=== PATIENT | female | born 1955 | race Caucasian/White ===

== ENCOUNTER 2021-08-04 09:01 | Outpatient (CLI) | payer MEDICARE, SELFPAY ==
[2021-08-04 09:25] LABS: Hematocrit 32.1 % (37.0-47.0); Hemoglobin 10.3 g/dL (12.0-15.0); Mean Corpuscular HGB Conc 32.1 g/dl (32-36); Mean Corpuscular Hemoglobin 26.2 pg (26-34); Mean Corpuscular Volume 81.7 fl (80-100); Mean Platelet Volume 8.6 fl (7.4-10.4); Platelet Count Result 260 k/mm3 (150-375); Red Blood Count 3.93 M/mm3 (4.2-5.4); Red Cell Distribution Width 15.2 % (11.5-14.5); White Blood Count 24.4 K/mm3 (4.5-10.0)
[2021-08-04 10:16] LABS: Atypical Lymphocytes Present; Band Neutrophils Percent 2 % (0-6); Eosinophils Absolute Manual 0.48 K/mm3 (0.02-0.5); Eosinophils Percent Manual 2 % (0-4); Hypochromasia 1+ (NORMAL); Lymphocytes Absolute Manual 0.48 K/mm3 (1.1-4.5); Neutrophils Absolute Manual 23.42 K/mm3 (1.7-7.2); Neutrophils Percent Manual 94 % (46-73); Platelet Estimate Adequate (Adequate); Total Cells Counted 100
[2021-08-04 10:17] LABS: Anisocytosis 1+ (NORMAL)
== END 2021-08-04 09:02 | disposition home or self-care (01) ==
PROVIDERS: PCP Internal Medicine
DX: C83.38 Diffuse large B-cell lymphoma, lymph nodes of multiple sites (principal); D61.810 Antineoplastic chemotherapy induced pancytopenia
CPT/HCPCS: 36415; 85025

== ENCOUNTER 2021-08-11 09:01 | Outpatient (CLI) | payer MEDICARE, SELFPAY ==
[2021-08-11 09:19] LABS: Hematocrit 31.5 % (37.0-47.0); Hemoglobin 10.2 g/dL (12.0-15.0); Mean Corpuscular HGB Conc 32.4 g/dl (32-36); Mean Corpuscular Volume 83.3 fl (80-100); Platelet Count Result 160 k/mm3 (150-375); Red Blood Count 3.78 M/mm3 (4.2-5.4); Red Cell Distribution Width 17.2 % (11.5-14.5); White Blood Count 46.1 K/mm3 (4.5-10.0)
[2021-08-11 09:38] LABS: Alanine Aminotransferase 16 U/L (4-35); Albumin Level 3.2 g/dL (3.5-5.1); Alkaline Phosphatase 136 U/L (38-126); Anion Gap 5 mmol/L (8-16); Aspartate Amino Transferase 24 U/L (14-36); Bilirubin,Total 0.2 mg/dL (0.2-1.3); Blood Urea Nitrogen 9 mg/dL (7-17); Calcium 10.1 mg/dL (8.4-10.2); Carbon Dioxide 25 mmol/L (22-30); Chloride 103 mmol/L (98-107); Estimated Glomerular Filt Rate > 60; Glucose 105 mg/dL (65-110); Potassium 3.6 mmol/L (3.4-5.0); Sodium 133 mmol/L (137-145)
[2021-08-11 10:58] LABS: Band Neutrophils Percent 18 % (0-6); Lymphocytes Absolute Manual 5.53 K/mm3 (1.1-4.5); Monocytes Absolute Manual 1.38 K/mm3 (0.1-0.90); Monocytes Percent Manual 3 % (3-9); Neutrophils Absolute Manual 39.18 K/mm3 (1.7-7.2); Neutrophils Percent Manual 67 % (46-73); Total Cells Counted 100
[2021-08-11 10:59] LABS: Atypical Lymphocytes Present; Platelet Estimate Adequate (Adequate)
== END 2021-08-11 09:02 | disposition home or self-care (01) ==
PROVIDERS: PCP Internal Medicine
DX: C83.38 Diffuse large B-cell lymphoma, lymph nodes of multiple sites (principal); D61.810 Antineoplastic chemotherapy induced pancytopenia
CPT/HCPCS: 36415; 80053; 85025

== ENCOUNTER 2021-10-02 06:34 | Outpatient (CLI) | payer MEDICARE, SELFPAY ==
[2021-10-02 07:46] LABS: Cholesterol 186 mg/dL (0-200); HDL Direct 64 mg/dL; Triglycerides 202 mg/dL (<150)
[2021-10-02 07:57] LABS: LDL Cholesterol Direct 81 mg/dL
== END 2021-10-02 06:35 | disposition home or self-care (01) ==
PROVIDERS: PCP Internal Medicine
DX: E78.2 Mixed hyperlipidemia (principal)
CPT/HCPCS: 36415; 80061; 85025; 85027; 86850; 86900; 86901

== ENCOUNTER 2021-11-16 07:02 | Outpatient (RCR) | payer MEDICARE, SELFPAY ==
[2021-08-14 08:22] LABS: Hemoglobin 9.7 g/dL (12.0-15.0); Mean Corpuscular HGB Conc 31.3 g/dl (32-36); Mean Corpuscular Hemoglobin 26.8 pg (26-34); Mean Corpuscular Volume 85.6 fl (80-100); Mean Platelet Volume 10.2 fl (7.4-10.4); Platelet Count Result 219 k/mm3 (150-375); Red Blood Count 3.62 M/mm3 (4.2-5.4); Red Cell Distribution Width 18.3 % (11.5-14.5); White Blood Count 45.8 K/mm3 (4.5-10.0)
[2021-08-14 08:52] LABS: Anisocytosis 1+ (NORMAL); Band Neutrophils Percent 16 % (0-6); Lymphocytes Absolute Manual 4.58 K/mm3 (1.1-4.5); Metamyelocytes Percent 1 %; Monocytes Absolute Manual 2.29 K/mm3 (0.1-0.90); Monocytes Percent Manual 5 % (3-9); Neutrophils Absolute Manual 38.47 K/mm3 (1.7-7.2); Neutrophils Percent Manual 68 % (46-73); Ovalocytes 1+ (NORMAL); Platelet Estimate Adequate (Adequate); Total Cells Counted 100
[2021-08-21 07:35] LABS: Basophils Percent Auto 0.1 % (0.2-1.2); Eosinophils Percent Auto 0.1 % (0-4.4); Immature Granulocyte Absolute 0.18 K/mm3 (0.00-0.031); Immature Granulocyte Percent A 1.1 % (0-0.5); Lymphocytes Percent Auto 5.1 % (18.3-44.2); Mean Corpuscular HGB Conc 32.2 g/dl (32-36); Mean Corpuscular Volume 83.9 fl (80-100); Mean Platelet Volume 9.2 fl (7.4-10.4); Monocytes Absolute Auto 0.1 K/mm3 (0.1-0.6); Monocytes Percent Auto 0.8 % (2.6-8.5); Neutrophils Absolute Auto 14.5 K/mm3 (1.3-6.7); Neutrophils Percent Auto 92.8 % (45.5-73.1); Nucleated Red Blood Cells Perc 0.1 % (0.0-0.2); Platelet Count Result 479 k/mm3 (150-375); Red Blood Count 2.11 M/mm3 (4.2-5.4); Red Cell Distribution Width 18.6 % (11.5-14.5); White Blood Count 15.7 K/mm3 (4.5-10.0)
[2021-08-21 08:01] LABS: Hematocrit 17.7 % (37.0-47.0); Hemoglobin 5.7 g/dL (12.0-15.0)
[2021-08-31 07:36] LABS: Hematocrit 28.7 % (37.0-47.0); Hemoglobin 9.3 g/dL (12.0-15.0); Mean Corpuscular HGB Conc 32.4 g/dl (32-36); Mean Corpuscular Hemoglobin 29.7 pg (26-34); Mean Corpuscular Volume 91.7 fl (80-100); Mean Platelet Volume 9.6 fl (7.4-10.4); Platelet Count Result 281 k/mm3 (150-375); Red Blood Count 3.13 M/mm3 (4.2-5.4); Red Cell Distribution Width 16.2 % (11.5-14.5); White Blood Count 19.8 K/mm3 (4.5-10.0)
[2021-08-31 07:59] LABS: Band Neutrophils Percent 9 % (0-6); Basophils Absolute Manual 0.39 K/mm3 (0.0-0.1); Basophils Percent Manual 2 % (0-1); Eosinophils Absolute Manual 0.19 K/mm3 (0.02-0.5); Eosinophils Percent Manual 1 % (0-4); Lymphocytes Absolute Manual 2.37 K/mm3 (1.1-4.5); Metamyelocytes Percent 7 %; Monocytes Absolute Manual 1.18 K/mm3 (0.1-0.90); Monocytes Percent Manual 6 % (3-9); Neutrophils Absolute Manual 14.25 K/mm3 (1.7-7.2); Neutrophils Percent Manual 63 % (46-73); Total Cells Counted 100
[2021-08-31 08:00] LABS: Anisocytosis 2+ (NORMAL); Atypical Lymphocytes Present; Platelet Estimate Adequate (Adequate)
[2021-09-11 07:11] LABS: Hemoglobin 8.9 g/dL (12.0-15.0); Mean Corpuscular Volume 90.9 fl (80-100); Mean Platelet Volume 8.8 fl (7.4-10.4); Platelet Count Result 362 k/mm3 (150-375); Red Blood Count 2.97 M/mm3 (4.2-5.4)
[2021-09-11 08:20] LABS: Lymphocytes Absolute Manual 1.47 K/mm3 (1.1-4.5); Neutrophils Percent Manual 98 % (46-73); Platelet Estimate Adequate (Adequate); Total Cells Counted 100
[2021-09-11 08:21] LABS: Anisocytosis 1+ (NORMAL); Hypochromasia 2+ (NORMAL)
[2021-09-11 13:52] LABS: Eosinophils Absolute Auto 0.4 K/mm3 (0-0.3); Lymphocytes Absolute Auto 0.41 K/mm3 (0.9-3.2); Monocytes Absolute Auto 0.1 K/mm3 (0.1-0.6); White Blood Count 73.5 K/mm3 (4.5-10.0)
[2021-09-11 13:53] LABS: Basophils Absolute Auto 0.3 K/mm3 (0.0-0.1)
[2021-09-14 07:13] LABS: Hematocrit 26.8 % (37.0-47.0); Hemoglobin 8.7 g/dL (12.0-15.0); Mean Corpuscular HGB Conc 32.5 g/dl (32-36); Mean Corpuscular Hemoglobin 29.6 pg (26-34); Mean Corpuscular Volume 91.2 fl (80-100); Mean Platelet Volume 8.9 fl (7.4-10.4); Platelet Count Result 263 k/mm3 (150-375); Red Blood Count 2.94 M/mm3 (4.2-5.4); Red Cell Distribution Width 16.6 % (11.5-14.5)
[2021-09-18 06:53] LABS: Hematocrit 28.5 % (37.0-47.0); Hemoglobin 9.1 g/dL (12.0-15.0); Mean Corpuscular HGB Conc 31.9 g/dl (32-36); Mean Corpuscular Hemoglobin 29.4 pg (26-34); Mean Corpuscular Volume 91.9 fl (80-100); Mean Platelet Volume 9.4 fl (7.4-10.4); Platelet Count Result 248 k/mm3 (150-375); Red Cell Distribution Width 17.4 % (11.5-14.5)
[2021-09-18 07:28] LABS: Band Neutrophils Percent 19 % (0-6); Eosinophils Absolute Manual 0.22 K/mm3 (0.02-0.5); Eosinophils Percent Manual 1 % (0-4); Lymphocytes Absolute Manual 0.88 K/mm3 (1.1-4.5); Metamyelocytes Percent 2 %; Monocytes Absolute Manual 2.42 K/mm3 (0.1-0.90); Monocytes Percent Manual 11 % (3-9); Neutrophils Absolute Manual 18.04 K/mm3 (1.7-7.2); Neutrophils Percent Manual 63 % (46-73); Total Cells Counted 100
[2021-09-18 07:29] LABS: Anisocytosis 1+ (NORMAL); Hypochromasia 1+ (NORMAL); Platelet Estimate Adequate (Adequate)
[2021-10-02 07:31] LABS: Hematocrit 26.6 % (37.0-47.0); Hemoglobin 8.4 g/dL (12.0-15.0); Mean Corpuscular HGB Conc 31.6 g/dl (32-36); Mean Corpuscular Hemoglobin 28.7 pg (26-34); Mean Corpuscular Volume 90.8 fl (80-100); Mean Platelet Volume 9.1 fl (7.4-10.4); Platelet Count Result 310 k/mm3 (150-375); Red Blood Count 2.93 M/mm3 (4.2-5.4); Red Cell Distribution Width 18.1 % (11.5-14.5); White Blood Count 44.3 K/mm3 (4.5-10.0)
[2021-10-02 08:01] LABS: Band Neutrophils Percent 4 % (0-6); Eosinophils Absolute Manual 0.44 K/mm3 (0.02-0.5); Eosinophils Percent Manual 1 % (0-4); Lymphocytes Absolute Manual 0.88 K/mm3 (1.1-4.5); Neutrophils Absolute Manual 42.97 K/mm3 (1.7-7.2); Neutrophils Percent Manual 93 % (46-73); Total Cells Counted 100
[2021-10-02 08:02] LABS: Anisocytosis 2+ (NORMAL); Hypochromasia 2+ (NORMAL); Platelet Estimate Adequate (Adequate); Target Cells 1+ (NORMAL); Tear Drop Cells 1+ (NORMAL)
[2021-10-02 08:03] LABS: Ovalocytes 1+ (NORMAL)
[2021-10-05 06:59] LABS: Basophils Absolute Auto 0.1 K/mm3 (0.0-0.1); Basophils Percent Auto 6.1 % (0.2-1.2); Eosinophils Absolute Auto 0.3 K/mm3 (0-0.3); Eosinophils Percent Auto 17.7 % (0-4.4); Hematocrit 25.1 % (37.0-47.0); Immature Granulocyte Absolute 0.01 K/mm3 (0.00-0.031); Immature Granulocyte Percent A 0.7 % (0-0.5); Lymphocytes Absolute Auto 0.22 K/mm3 (0.9-3.2); Mean Corpuscular HGB Conc 31.9 g/dl (32-36); Mean Corpuscular Hemoglobin 28.5 pg (26-34); Mean Corpuscular Volume 89.3 fl (80-100); Mean Platelet Volume 9.5 fl (7.4-10.4); Monocytes Absolute Auto 0.1 K/mm3 (0.1-0.6); Monocytes Percent Auto 8.8 % (2.6-8.5); Neutrophils Absolute Auto 0.8 K/mm3 (1.3-6.7); Neutrophils Percent Auto 51.7 % (45.5-73.1); Platelet Count Result 177 k/mm3 (150-375); Red Blood Count 2.81 M/mm3 (4.2-5.4)
[2021-10-05 08:49] LABS: White Blood Count 1.5 K/mm3 (4.5-10.0)
[2021-10-09 07:06] LABS: Hematocrit 27.8 % (37.0-47.0); Hemoglobin 8.5 g/dL (12.0-15.0); Mean Corpuscular HGB Conc 30.6 g/dl (32-36); Mean Corpuscular Hemoglobin 28.1 pg (26-34); Mean Corpuscular Volume 91.7 fl (80-100); Mean Platelet Volume 9.7 fl (7.4-10.4); Platelet Count Result 304 k/mm3 (150-375); Red Blood Count 3.03 M/mm3 (4.2-5.4); Red Cell Distribution Width 19.8 % (11.5-14.5); White Blood Count 16.5 K/mm3 (4.5-10.0)
[2021-10-09 07:36] LABS: Large Platelets Present; Platelet Clumps Present; Platelet Estimate Adequate (Adequate)
[2021-10-09 07:37] LABS: Band Neutrophils Percent 4 % (0-6); Basophils Absolute Manual 0.33 K/mm3 (0.0-0.1); Basophils Percent Manual 2 % (0-1); Lymphocytes Absolute Manual 0.49 K/mm3 (1.1-4.5); Lymphocytes Percent Manual 3 % (18-44); Monocytes Absolute Manual 2.64 K/mm3 (0.1-0.90); Monocytes Percent Manual 16 % (3-9); Neutrophils Absolute Manual 13.03 K/mm3 (1.7-7.2); Neutrophils Percent Manual 75 % (46-73); Nucleated Red Blood Cells 3 %; Total Cells Counted 100
[2021-10-09 07:38] LABS: Anisocytosis 1+ (NORMAL); Hypochromasia 2+ (NORMAL); Poikilocytosis 1+ (NORMAL)
[2021-10-09 07:39] LABS: Stomatocytes 1+ (NORMAL); Tear Drop Cells 1+ (NORMAL)
[2021-10-12 07:44] LABS: Hematocrit 30.4 % (37.0-47.0); Hemoglobin 9.3 g/dL (12.0-15.0); Mean Corpuscular HGB Conc 30.6 g/dl (32-36); Mean Corpuscular Hemoglobin 27.8 pg (26-34); Mean Corpuscular Volume 90.7 fl (80-100); Mean Platelet Volume 9.2 fl (7.4-10.4); Platelet Count Result 427 k/mm3 (150-375); Red Blood Count 3.35 M/mm3 (4.2-5.4); Red Cell Distribution Width 19.5 % (11.5-14.5); White Blood Count 17.9 K/mm3 (4.5-10.0)
[2021-10-12 08:45] LABS: Band Neutrophils Percent 5 % (0-6); Eosinophils Absolute Manual 0.17 K/mm3 (0.02-0.5); Eosinophils Percent Manual 1 % (0-4); Lymphocytes Absolute Manual 1.25 K/mm3 (1.1-4.5); Monocytes Absolute Manual 0.89 K/mm3 (0.1-0.90); Monocytes Percent Manual 5 % (3-9); Neutrophils Absolute Manual 15.57 K/mm3 (1.7-7.2); Neutrophils Percent Manual 82 % (46-73); Platelet Estimate Adequate (Adequate); Total Cells Counted 100
[2021-10-12 08:46] LABS: Anisocytosis 1+ (NORMAL); Ovalocytes 1+ (NORMAL)
[2021-10-23 07:58] LABS: Basophils Absolute Auto 0.2 K/mm3 (0.0-0.1); Basophils Percent Auto 0.5 % (0.2-1.2); Eosinophils Absolute Auto 0.1 K/mm3 (0-0.3); Eosinophils Percent Auto 0.2 % (0-4.4); Hematocrit 29.8 % (37.0-47.0); Hemoglobin 9.2 g/dL (12.0-15.0); Immature Granulocyte Absolute 6.34 K/mm3 (0.00-0.031); Immature Granulocyte Percent A 18.1 % (0-0.5); Lymphocytes Percent Auto 0.6 % (18.3-44.2); Mean Corpuscular HGB Conc 30.9 g/dl (32-36); Mean Corpuscular Hemoglobin 27.7 pg (26-34); Mean Corpuscular Volume 89.8 fl (80-100); Mean Platelet Volume 9.9 fl (7.4-10.4); Monocytes Percent Auto 0.1 % (2.6-8.5); Neutrophils Absolute Auto 28.2 K/mm3 (1.3-6.7); Neutrophils Percent Auto 80.5 % (45.5-73.1); Platelet Count Result 266 k/mm3 (150-375); Red Blood Count 3.32 M/mm3 (4.2-5.4); Red Cell Distribution Width 18.6 % (11.5-14.5)
[2021-10-26 07:09] LABS: Hematocrit 26.8 % (37.0-47.0); Hemoglobin 8.4 g/dL (12.0-15.0); Mean Corpuscular HGB Conc 31.3 g/dl (32-36); Mean Corpuscular Hemoglobin 27.6 pg (26-34); Mean Corpuscular Volume 88.2 fl (80-100); Mean Platelet Volume 9.3 fl (7.4-10.4); Platelet Count Result 120 k/mm3 (150-375); Red Blood Count 3.04 M/mm3 (4.2-5.4); Red Cell Distribution Width 18.3 % (11.5-14.5)
[2021-10-26 07:54] LABS: Anisocytosis 1+ (NORMAL); Band Neutrophils Percent 9 % (0-6); Basophils Absolute Manual 0.02 K/mm3 (0.0-0.1); Basophils Percent Manual 4 % (0-1); Eosinophils Absolute Manual 0.04 K/mm3 (0.02-0.5); Eosinophils Percent Manual 7 % (0-4); Lymphocytes Absolute Manual 0.14 K/mm3 (1.1-4.5); Monocytes Absolute Manual 0.03 K/mm3 (0.1-0.90); Monocytes Percent Manual 6 % (3-9); Neutrophils Absolute Manual 0.35 K/mm3 (1.7-7.2); Neutrophils Percent Manual 50 % (46-73); Platelet Estimate Decreased (Adequate); Total Cells Counted 100
[2021-10-26 07:55] LABS: Atypical Lymphocytes Present; Dohle Bodies Present (NORMAL)
[2021-10-26 09:55] LABS: White Blood Count 0.6 K/mm3 (4.5-10.0)
[2021-10-30 07:26] LABS: Hematocrit 28.8 % (37.0-47.0); Hemoglobin 8.8 g/dL (12.0-15.0); Mean Corpuscular HGB Conc 30.6 g/dl (32-36); Mean Corpuscular Hemoglobin 27.7 pg (26-34); Mean Corpuscular Volume 90.6 fl (80-100); Mean Platelet Volume 10.5 fl (7.4-10.4); Platelet Count Result 199 k/mm3 (150-375); Red Blood Count 3.18 M/mm3 (4.2-5.4); White Blood Count 12.5 K/mm3 (4.5-10.0)
[2021-10-30 07:53] LABS: Band Neutrophils Percent 26 % (0-6); Eosinophils Absolute Manual 0.12 K/mm3 (0.02-0.5); Eosinophils Percent Manual 1 % (0-4); Metamyelocytes Percent 5 %; Monocytes Absolute Manual 0.62 K/mm3 (0.1-0.90); Monocytes Percent Manual 5 % (3-9); Myelocytes Percent 2 %; Neutrophils Absolute Manual 9.87 K/mm3 (1.7-7.2); Neutrophils Percent Manual 53 % (46-73); Platelet Estimate Adequate (Adequate); Total Cells Counted 100
[2021-10-30 07:54] LABS: Anisocytosis 2+ (NORMAL); Hypochromasia 1+ (NORMAL); Poikilocytosis 1+ (NORMAL); Tear Drop Cells 1+ (NORMAL)
[2021-11-16 07:32] LABS: Hematocrit 24.8 % (37.0-47.0); Hemoglobin 7.9 g/dL (12.0-15.0); Mean Corpuscular HGB Conc 31.9 g/dl (32-36); Mean Corpuscular Hemoglobin 27.9 pg (26-34); Mean Corpuscular Volume 87.6 fl (80-100); Mean Platelet Volume 9.1 fl (7.4-10.4); Platelet Count Result 91 k/mm3 (150-375); Red Blood Count 2.83 M/mm3 (4.2-5.4); Red Cell Distribution Width 19.1 % (11.5-14.5)
[2021-11-16 08:32] LABS: Band Neutrophils Percent 2 % (0-6); Basophils Absolute Manual 0.01 K/mm3 (0.0-0.1); Basophils Percent Manual 8 % (0-1); Eosinophils Absolute Manual 0.01 K/mm3 (0.02-0.5); Eosinophils Percent Manual 8 % (0-4); Lymphocytes Absolute Manual 0.05 K/mm3 (1.1-4.5); Monocytes Absolute Manual 0.01 K/mm3 (0.1-0.90); Monocytes Percent Manual 6 % (3-9); Neutrophils Percent Manual 48 % (46-73); Platelet Estimate Decreased (Adequate); Total Cells Counted 100
[2021-11-16 08:40] LABS: White Blood Count 0.2 K/mm3 (4.5-10.0)
== END 2021-11-16 23:59 | disposition home or self-care (01) ==
LOC: ANHLAB 07:02
PROVIDERS: PCP Internal Medicine
DX: C83.38 Diffuse large B-cell lymphoma, lymph nodes of multiple sites (principal)
CPT/HCPCS: 36415; 85025; 85027; 86850; 86900; 86901

== ENCOUNTER 2021-11-20 06:50 | Outpatient (RCR) | payer MEDICARE, SELFPAY ==
[2021-11-20 07:16] LABS: Hematocrit 33.4 % (37.0-47.0); Hemoglobin 10.5 g/dL (12.0-15.0); Mean Corpuscular HGB Conc 31.4 g/dl (32-36); Mean Corpuscular Hemoglobin 28.2 pg (26-34); Mean Corpuscular Volume 89.5 fl (80-100); Mean Platelet Volume 10.3 fl (7.4-10.4); Platelet Count Result 162 k/mm3 (150-375); Red Blood Count 3.73 M/mm3 (4.2-5.4); Red Cell Distribution Width 19.2 % (11.5-14.5); White Blood Count 13.1 K/mm3 (4.5-10.0)
[2021-11-20 08:10] LABS: Band Neutrophils Percent 20 % (0-6); Lymphocytes Absolute Manual 1.57 K/mm3 (1.1-4.5); Metamyelocytes Percent 2 %; Monocytes Absolute Manual 0.91 K/mm3 (0.1-0.90); Monocytes Percent Manual 7 % (3-9); Neutrophils Absolute Manual 10.34 K/mm3 (1.7-7.2); Neutrophils Percent Manual 59 % (46-73); Nucleated Red Blood Cells 1 %; Total Cells Counted 100
[2021-11-20 08:11] LABS: Dohle Bodies Present (NORMAL); Platelet Estimate Adequate (Adequate)
[2021-11-20 08:12] LABS: Atypical Lymphocytes Present; Microcytosis 1+ (NORMAL)
[2021-11-20 08:13] LABS: Anisocytosis 1+ (NORMAL)
== END 2022-02-18 23:59 | disposition home or self-care (01) ==
LOC: ANHLAB 06:50
PROVIDERS: PCP Internal Medicine
DX: C83.38 Diffuse large B-cell lymphoma, lymph nodes of multiple sites (principal); Z76.89 Persons encountering health services in other specified circumstances
CPT/HCPCS: 36415; 85025

== ENCOUNTER 2022-04-20 07:45 | Outpatient (CLI) | payer MEDICARE, SELFPAY ==
[2022-04-20 08:35] LABS: Cholesterol 147 mg/dL (0-200); HDL Direct 38 mg/dL; Triglycerides 171 mg/dL (<150)
[2022-04-20 08:46] LABS: LDL Cholesterol Direct 73 mg/dL
[2022-04-20 10:25] LABS: Digoxin < 0.4 ng/mL (0.8-2.0)
== END 2022-04-20 07:46 | disposition home or self-care (01) ==
PROVIDERS: PCP Internal Medicine
DX: I48.0 Paroxysmal atrial fibrillation (principal); E78.2 Mixed hyperlipidemia
CPT/HCPCS: 36415; 80061; 80162

== ENCOUNTER 2022-04-23 09:09 | Outpatient (RCR) | payer MEDICARE, SELFPAY ==
[2022-04-05 11:25] LABS: Anion Gap 9 mmol/L (8-16); Blood Urea Nitrogen 11 mg/dL (7-17); Carbon Dioxide 23 mmol/L (22-30); Chloride 98 mmol/L (98-107); Estimated Glomerular Filt Rate > 60; Glucose 87 mg/dL (65-110); Potassium 3.9 mmol/L (3.4-5.0); Sodium 130 mmol/L (137-145)
[2022-04-06 09:27] LABS: Anion Gap 12 mmol/L (8-16); Blood Urea Nitrogen 8 mg/dL (7-17); Calcium 10.2 mg/dL (8.4-10.2); Carbon Dioxide 21 mmol/L (22-30); Chloride 99 mmol/L (98-107); Estimated Glomerular Filt Rate > 60; Glucose 88 mg/dL (65-110); Potassium 4.4 mmol/L (3.4-5.0); Sodium 132 mmol/L (137-145)
[2022-04-20 08:37] LABS: Anion Gap 13 mmol/L (8-16); Blood Urea Nitrogen 22 mg/dL (7-17); Calcium 10.6 mg/dL (8.4-10.2); Carbon Dioxide 27 mmol/L (22-30); Chloride 88 mmol/L (98-107); Estimated Glomerular Filt Rate > 60; Glucose 91 mg/dL (65-110); Potassium 3.7 mmol/L (3.4-5.0); Sodium 128 mmol/L (137-145)
[2022-04-20 11:32] LABS: Cholesterol 143 mg/dL (0-200); HDL Direct 37 mg/dL; Triglycerides 166 mg/dL (<150)
[2022-04-20 11:43] LABS: LDL Cholesterol Direct 76 mg/dL
[2022-04-23 10:02] LABS: Anion Gap 10 mmol/L (8-16); Blood Urea Nitrogen 36 mg/dL (7-17); Calcium 10.2 mg/dL (8.4-10.2); Carbon Dioxide 29 mmol/L (22-30); Chloride 85 mmol/L (98-107); Estimated Glomerular Filt Rate > 60; Glucose 84 mg/dL (65-110); Potassium 3.9 mmol/L (3.4-5.0); Sodium 124 mmol/L (137-145)
== END 2022-07-04 23:59 | disposition home or self-care (01) ==
LOC: ANHLAB 09:09
PROVIDERS: PCP Internal Medicine
DX: E87.1 Hypo-osmolality and hyponatremia (principal)
CPT/HCPCS: 36415; 80048; 80061; 80162

== ENCOUNTER 2022-04-24 12:35 | Inpatient (IN) | payer MEDICARE, SELFPAY ==
[2022-04-24] VITALS (15 sets, daily range): BP systolic 93–123; BP diastolic 52–97; PULSE 66–135; RESP 15–21; TEMP 36.3–36.4; O2SAT 92–100; BMI 14.6
--- NOTE | ~2022-04-24 | CT_ITS ---
EXAMINATION: CT abdomen pelvis wo con DATE: 04/24/2022 17:34 INDICATION: Abdominal pain, N/V TECHNIQUE: Computed tomography (CT) of the abdomen and pelvis was performed without intravenous contr ast. Automated exposure control and iterative reconstruction technique were employed. The dose-length product was 177.48 mGy-cm. COMPARISON: None. FINDINGS: Exam limited by the paucity of abdominopelvic fat and displacement of normal anatomy by diffusely dil ated small bowel Lower thorax: Right middle lobe scar. Small pericardial effusion. Coronary artery ca lcifications. Liver: Normal. Biliary/Gallbladder: Gallbladder is absent. No bile duct dilation. Pancreas: No mass or duct dilation. Spleen: Normal. Adrenals:Bilateral thickening, likely hyperplasia. Kidneys: Multiple bilateral calculi. Moderate right pelvocaliectasis. Right nephroureteral stent, in good position. GI tract: Marked gastric dilation. Marked diffuse small bowel dilation. Transition point in the upper midline pelvis (axial image 115). Uncomplicated appearing distal small bowel anastomosis. Appendix n ot visualized. Mesentery/Peritoneum: No ascites, mass, or free air. Mesenteric edema. Retroperitoneum: No mass. Atherosclerotic abdominal aortic and/or arterial calcifications. Pelvis: The bladder is decompressed. Uterus not visualized. Trace free pelvic fluid. Soft Tissues: Left lower quadrant ostomy. Irregular, lobular appearing soft tissue density in the mid line peritoneum. Bones: No acute osseous finding. IMPRESSION: 1. Severe, distal small bowel obstruction, possibly secondary to a midline adhesion in the upper pelv is. 2. Small pericardial effusion. 3. Moderate right pelvocaliectasis in spite of the right nephroureteral stent, may represent chronic dilation or stent dysfunction. Comparison to outside studies would be helpful to differentiate. 4. Possible peroneal/vaginal soft tissue mass, correlate with physical exam and history. Results reported telephonically to the patient's nurse Tiffany Liang RN by Dr. Sebastian at 7:18 PM on 04/24/2022. Reviewed, dictated and finalized at location K. IMPRESSION: 1. Severe, distal small bowel obstruction, possibly secondary to a midline adhe blaise in the upper pelvis. 2. Small pericardial effusion. 3. Moderate right pelvocaliectasis in spite of the right nephroureteral stent, may represent chronic dilation or stent dysfunction. Comparison to outside stud ies would be helpful to differentiate. 4. Possible peroneal/vaginal soft tissue mass, correlate with physical exam and history. Results reported telephonically to the patient's nurse Tiffany Liang RN by Dr. Sebastian at 7:18 PM on 04/24/2022.
--- NOTE | ~2022-04-24 | XR_ITS ---
EXAMINATION: XR abdomen obstructive series DATE: 04/27/2022 05:35 INDICATION: Small bowel obstruction TECHNIQUE: Frontal supine and upright views of the abdomen were obtained. COMPARISON: None. FINDINGS: Nasogastric tube tip in proximal side port in the stomach. Right-sided central venous port catheter w ith distal tip in the midsuperior vena cava. Right internal ureteral stent in expected position with loops formed in the bladder and in the region of the right renal pelvis. Cholecystectomy clips in the right upper quadrant. No free intraperitoneal gas. Multiple dilated gas and fluid-filled loops of small bowel consistent with persistent small bowel obstruction. Mild streaky atelectasis at the bilat eral lung bases. Heart size is normal. Bulging contour of the right side of the heart which correspon ds to an anterior mediastinal mass in the right epicardial fat with some discontinuous curvilinear ca lcification along the peripheral lobular margins. IMPRESSION: 1. Persistent dilated gas-filled loops of bowel consistent with persistent small bowel obstruction. 2. Right epicardial anterior mediastinal mass with calcification. Differential would include treated lymphoma, teratoma, metastases from serous or mucinous tumor, secondary complicated pericardial or fo regut duplication cyst, sarcoidosis or sequela of prior granulomatous disease. Reviewed, dictated and finalized at location A. IMPRESSION: 1. Persistent dilated gas-filled loops of bowel consistent with persistent sma ll bowel obstruction. 2. Right epicardial anterior mediastinal mass with calcification. Differential would include treated lymphoma, teratoma, metastases from serous or mucinous tu mor, secondary complicated pericardial or foregut duplication cyst, sarcoidosis or sequela of prior granulomatous disease.
--- NOTE | ~2022-04-24 | XR_ITS ---
EXAMINATION: XR chest 1V portable INDICATION: Atrial fibrillation with RVR TECHNIQUE: Portable AP chest at 1417 hours COMPARISON: None available FINDINGS: The lungs are hyperinflated but free of acute opacities. No pleural effusion or pneumothora x. A right internal jugular Port-A-Cath ends with its tip in the midsuperior vena cava. The cardiomed iastinal silhouette is normal. There are questionable healing fractures left third through fifth ribs . IMPRESSION: 1. Hyperinflation without acute cardiopulmonary abnormality. Reviewed, dictated and finalized at location A.
--- NOTE | ~2022-04-24 | XR_ITS ---
EXAM: XR abdomen NG/feed tube insert DATE: 04/24/2022 23:07 HISTORY: ng tube placement . COMPARISON: CT abdomen and pelvis, same date. FINDINGS: NG tube, tip over the stomach side port just beyond the GE junction. Clear lung bases. Nor mal partially visualized bowel gas pattern, likely due to fluid-filled loops of dilated bowel. Cholec ystomy clips. Partially visualized right ureteral stent. Regional bones and soft tissues normal for a ge. IMPRESSION: Shallow positioning of the NG tube, correlate with tube function and consider advancing b y 5 cm. Reviewed, dictated and finalized at location K. IMPRESSION: Shallow positioning of the NG tube, correlate with tube function an d consider advancing by 5 cm.
--- NOTE | ~2022-04-24 | XR_ITS ---
EXAMINATION: XR abdomen obstructive series DATE: 04/25/2022 08:33 INDICATION: Small bowel obstruction TECHNIQUE: Upright and supine views of the abdomen were obtained. COMPARISON: 04/24/2022 FINDINGS: The nasogastric tube is in the stomach. There are multiple persistently dilated loops of sm all bowel in the midabdomen. No free intraperitoneal gas is identified. A right internal ureteral john nt is in expected position. Cholecystectomy clips are noted in the right upper quadrant. There is a b owel surgical anastomosis in the pelvis. The visualized lung bases are clear. IMPRESSION: 1. Persistent small bowel obstruction. Reviewed, dictated and finalized at location A.
--- NOTE | ~2022-04-24 | XR_ITS ---
EXAMINATION: CYSTOGRAM DATE: 04/27/2022 11:20 INDICATION: Right hydronephrosis. Assess for right internal ureteral stent occlusion. TECHNIQUE: Initial camp maintenance supervisor radiograph of the pelvis was performed. There was retrograde administration of 350 mL of a 2:5 mixture of Omnipaque 350 contrast mixed with saline contrast into patient's exist ing Shin catheter. Fluoroscopic images of the pelvis were obtained. A post-void image was also perfo rmed. Fluoroscopy exposure time was 0.9 minutes. A single overhead camp maintenance supervisor radiograph and 21 fluoroscop ic images recorded. COMPARISON: CT abdomen pelvis dated 04/24/2022 FINDINGS: Intensive Care Nurse radiograph demonstrates a right internal ureteral stent in expected position with loops formed over the expected location of the bladder and right renal pelvis. There are multiple mildly dilated g as-filled loops of small bowel throughout the abdomen and pelvis consistent with either ileus or obst ruction. Anastomotic suture line in the right hemipelvis. Cholecystectomy clips in the right upper qu adrant. Bilateral nephrolithiasis with a few stones measuring up to 5 mm projecting over both kidneys . No stones seen along the course of ureters. A few phleboliths a small amount of linear atherosclero tic calcification in the left hemipelvis. Contrast fills the normal-appearing bladder with no mucosal irregularities. No reflux is observed eit her by the right internal ureteral stent or either ureter. The lumen of the internal stent remains un opacified including the portion positioned within the bladder. IMPRESSION: 1. No evident reflux of contrast into the the right internal ureteral stent which appears appropriate ly positioned and which suggests obstructing encrustation. 2. Bilateral nephrolithiasis. 3. Persistent small bowel obstruction versus ileus. Reviewed, dictated and finalized at location A. IMPRESSION: 1. No evident reflux of contrast into the the right internal ureteral stent whi ch appears appropriately positioned and which suggests obstructing encrustation . 2. Bilateral nephrolithiasis. 3. Persistent small bowel obstruction versus ileus.
--- NOTE | ~2022-04-24 | XR_ITS ---
EXAMINATION: XR abdomen obstructive series DATE: 04/26/2022 06:10 INDICATION: Possible small bowel obstruction TECHNIQUE: Upright and supine views of the abdomen were obtained. COMPARISON: 04/25/2022 FINDINGS: The nasogastric tube is in the stomach. No free intraperitoneal gas is identified. There ar e multiple dilated loops of small bowel in the midabdomen. There is a partially imaged right-sided Po rt-A-Cath of the chest. A right internal ureteral stent is in expected position. A bowel surgical lavinia stomosis is noted in the pelvis. There is a paucity of gas in the large bowel. IMPRESSION: 1. Small bowel obstruction without significant change. Reviewed, dictated and finalized at location B.
--- NOTE | 2022-04-24 13:17 | ECG_ITS ---
Measurements Intervals [place] Rate: 163 P: FL: 0 QRS: 84 QRSD: 100 T: 58 QT: 272 QTc: 448 Interpretive Statements ATRIAL FIBRILLATION WITH RAPID VENTRICULAR RESPONSE LOW QRS VOLTAGE IN EXTREMITY LEADS [QRS DEFLECTION < 0.5 mV IN LIMB LEADS] SEPTAL MYOCARDIAL INFARCTION , OF INDETERMINATE AGE [40+ ms Q WAVE IN V1/V2] ABNORMAL ECG NO PREVIOUS ECG AVAILABLE FOR COMPARISON Electronically Signed On 04-24-2022 14:13:58 CDT by Augie Mittal M.D.
[2022-04-24] MEDS: dilTIAZem 100 MG/100 ML 100 MG/100 ML BAG IV CONT (13:53)
[2022-04-24] MEDS: dilTIAZem HCl INJ 25 MG/5 ML VIAL 10 MG IV PUSH (13:53)
[2022-04-24 14:16] LABS: Basophils Absolute Auto 0.1 K/mm3 (0.0-0.1); Basophils Percent Auto 0.4 % (0.2-1.2); Hematocrit 42.6 % (37.0-47.0); Hemoglobin 14.5 g/dL (12.0-15.0); Immature Granulocyte Percent A 2.5 % (0-0.5); Lymphocytes Absolute Auto 1.15 K/mm3 (0.9-3.2); Lymphocytes Percent Auto 5.8 % (18.3-44.2); Mean Corpuscular Hemoglobin 31.9 pg (26-34); Mean Corpuscular Volume 93.6 fl (80-100); Mean Platelet Volume 10.7 fl (7.4-10.4); Monocytes Absolute Auto 0.6 K/mm3 (0.1-0.6); Monocytes Percent Auto 2.9 % (2.6-8.5); Neutrophils Absolute Auto 17.6 K/mm3 (1.3-6.7); Neutrophils Percent Auto 88.4 % (45.5-73.1); Platelet Count Result 146 k/mm3 (150-375); Red Blood Count 4.55 M/mm3 (4.2-5.4); Red Cell Distribution Width 13.9 % (11.5-14.5); White Blood Count 19.9 K/mm3 (4.5-10.0)
[2022-04-24 14:31] LABS: Alanine Aminotransferase 15 U/L (6-35); Albumin Level 3.8 g/dL (3.5-5.1); Alkaline Phosphatase 105 U/L (38-126); Anion Gap 22 mmol/L (8-16); Aspartate Amino Transferase 23 U/L (14-36); Bilirubin,Total 0.7 mg/dL (0.2-1.3); Blood Urea Nitrogen 33 mg/dL (7-17); Calcium 10.5 mg/dL (8.4-10.2); Carbon Dioxide 30 mmol/L (22-30); Chloride 78 mmol/L (98-107); Estimated CRCL calculation 36 ml/min; Estimated Glomerular Filt Rate > 60; Glucose 108 mg/dL (65-110); Potassium 2.8 mmol/L (3.4-5.0); Sodium 130 mmol/L (137-145)
--- NOTE | 2022-04-24 14:37 | ED.GENADULT ---
HPI - General Adult General Chief complaint: Recheck/Abnormal Lab/Rx Stated complaint: Low sodium, dizzy Time Seen by Provider: 04/24/22 13:42 Source: patient and family Mode of arrival: ambulatory Limitations: no limitations History of Present Illness HPI narrative: 67 years old white female history of B-cell lymphoma last chemotherapy January 2022, patient been in remission since February. Patient had regular blood work-up yesterday had a phone call to come to the emergency room because of low sodium of 124. History of A. fib, hypothyroidism patient is not on any antiplatelet or anticoagulant medication patient reports vomiting twice over the last 24 hours, denies any new abdominal pain or back pain or any new symptoms. Patient denies palpitation, shortness of breath or chest pain or fever or chills patient is full code Related Data Allergies Allergy/AdvReac Type Severity Reaction Status Date / Time No Known Allergies Allergy Verified 04/24/22 12:45 Review of Systems Review of Systems: All systems reviewed & are unremarkable except as noted in HPI and below PMFSH Past Medical History Medical History (Updated 04/24/22 @ 17:55 by Ramon Roberts MD) Atrial fibrillation B-cell lymphoma Surgical History Surgical History (Updated 04/24/22 @ 17:08 by Tana Auguste PA-C) History of ileostomy Family History Family History (Updated 04/24/22 @ 17:08 by Tana Auguste PA-C) Mother Diabetes mellitus Social History Social History (Updated 04/24/22 @ 17:10 by Tana Auguste PA-C) Social History: Surrogate decision maker: Mitzy (sister) Code status: Full Smoking packs per day: 1 Smoking cigarettes per day: 20.0 Years smoked: 10 Smoking pack-years: 10.00 Smoking status: Former smoker Alcohol intake: never Substance use: never Exam Narrative: General appearance: Well-developed, malnourished Skin: Normal color Head: Normocephalic, nontraumatic Eyes: Clear conjunctiva ENT: Oropharynx normal, ears normal, nose normal Neck: Supple, nontender Chest and respiratory: Airway patent, no respiratory distress, no accessory muscle use Heart: Tachycardia, irregular irregularity Abdomen: Soft, nontender, no organomegaly, quiet bowel sounds, ileostomy bag Vascular: Normal peripheral pulses, normal capillary refill. Musculoskeletal: Normal range of motion, nontender back Neurologic: Alert and oriented ?3, CLINICAL DOCUMENTATION CLERK is normal as tested, no gross motor deficit Course Consultations Consultation #1: Dr. Kamara Date: 04/24/22 Time: 15:30 Consultation #2: eloise, nurse practitioner/Dr. Bhat Date: 04/24/22 Time: 15:31 Vital Signs Vital signs: Vital Signs Temperature 36.3 C L 04/24/22 12:37 Pulse Rate 66 04/24/22 12:37 Respiratory Rate 16 04/24/22 12:37 Blood Pressure 123/97 H 04/24/22 12:37 Pulse Oximetry 92 04/24/22 12:37 Oxygen Delivery Room Air 04/24/22 12:37 Temperature 36.3 C L 04/24/22 12:37 Pulse Rate 95 04/24/22 17:11 Respiratory Rate 17 04/24/22 17:11 Blood Pressure 99/72 L 04/24/22 17:11 Pulse Oximetry 100 04/24/22 17:11 Oxygen Delivery Room Air 04/24/22 12:37 Medical Decision Making Differential Diagnosis Differential Diagnosis: A. fib with RVR, electrolyte imbalance, coronary artery disease Vital Signs Vital Signs: Vital Signs Temperature 36.3 C L 04/24/22 12:37 Pulse Rate 66 04/24/22 12:37 Respiratory Rate 16 04/24/22 12:37 Blood Pressure 123/97 H 04/24/22 12:37 Pulse Oximetry 92 04/24/22 12:37 Oxygen Delivery Room Air 04/24/22 12:37 Temperature 36.3 C L 04/24/22 12:37 Pulse Rate 95 04/24/22 17:11 Respiratory Rate 17 10
[2022-04-24 14:40] LABS: NT Pro B Type Natriuretic Pept 8640 pg/mL (5-100); Troponin I < 0.012 ng/mL (0.000-0.034)
[2022-04-24 14:46] LABS: Partial Thromboplastin Time 26.6 SECONDS (22.3-36.8)
[2022-04-24 14:59] LABS: SARS-CoV-2 RNA PCR Negative
[2022-04-24] MEDS: MORPHINE SULFATE (*CRX) 15 MG TAB IR PO (16:33)
[2022-04-24 16:39] LABS: Add Urine Microscopic? YES; Appearance Urine Cloudy (Clear); Bacteria Urine 2+ /hpf; Bilirubin Urine Negative (Negative); Blood Urine Negative (Negative); Color Urine Amber (Yellow); Glucose Urine UA Negative (Negative); Hyaline Casts Urine 30-49 /lpf; Ketones Urine 1+ mg/dL (Negative); Leukocyte Esterase Ur 1+ LEU/UL (Negative); Mucus Urine Moderate /lpf; Nitrate Urine Negative (Negative); Protein Urine 2+ mg/dL (Negative); Squamous Epithelial Cell Urine Rare /hpf (Few); WBC Urine >75 /hpf
--- NOTE | 2022-04-24 16:59 | PM.IMHP ---
H&P: HPI History of Present Illness Date/Time: 04/24/22 16:59 Chief Complaint: Nausea and vomiting Narrative: Date of admission: 04/24/2022 Marleen Maynard is a 67-year-old female with a history of B-cell lymphoma s/p chemo and radiation currently in remission, history of ileostomy, atrial fibrillation not on anticoagulation, and recent admission at [facility] for nausea, vomiting, abdominal pain just discharged about 5 days ago who presented to the emergency department today with complaints of vomiting ongoing for 3 days. The patient states she has not been able to keep anything down. She endorses chills but no fever and has been feeling extremely weak and dizzy. States she is very dehydrated. She has not had any stool output in her ostomy bag for 24 hours. She has been able to urinate, but states she has only gone once today. she denies dysuria or other urinary symptoms. Additionally, she had routine lab work done yesterday and received a phone call that she needed evaluation because her sodium was 124. She called her oncologist's office and they told her she should come to the nearest ED for evaluation. on presentation to the ED, her vital signs were stable, she was afebrile, WBC 19.9, sodium 130, potassium 2.8, additional electrolytes stable, troponin negative, BNP 8640, COVID negative, CXR showed hyperinflation with no acute cardiopulmonary abnormality, and EKG demonstrated atrial fibrillation with rapid ventricular response with heart rate 160. Heart rate has improved with diltiazem to the 100s-120s. At the time of my evaluation, the patient denies chest pain or palpitations. She does endorse burning epigastric pain and belching. The patient is being admitted to the hospitalist service for observation. Supervising physician for this history and physical is Dr. Madison Perrin. Review of Systems Review of Systems: All systems reviewed & are unremarkable except as noted in HPI and below PMFSH Past Medical History Medical History (Updated 04/24/22 @ 17:22 by Tana Auguste PA-C) Atrial fibrillation B-cell lymphoma Surgical History Surgical History (Updated 04/24/22 @ 17:08 by Tana Auguste PA-C) History of ileostomy Family History Family History (Updated 04/24/22 @ 17:08 by Tana Auguste PA-C) Mother Diabetes mellitus Social History Social History (Updated 04/24/22 @ 17:10 by Tana Auguste PA-C) Social History: Surrogate decision maker: Mitzy (sister) Code status: Full Smoking packs per day: 1 Smoking cigarettes per day: 20.0 Years smoked: 10 Smoking pack-years: 10.00 Smoking status: Former smoker Alcohol intake: never Substance use: never Meds Home Medications and Allergies Allergies Allergy/AdvReac Type Severity Reaction Status Date / Time No Known Allergies Allergy Verified 04/24/22 12:45 Vital Signs Vital Signs - 24 hr 04/24/22 12:37 04/24/22 13:53 04/24/22 14:30 Temperature 97.3 F L Pulse Rate 66 135 H 120 H Respiratory Rate 16 Blood Pressure 123/97 H Pulse Oximetry 92 Oxygen Delivery Room Air 04/24/22 14:30 04/24/22 15:00 04/24/22 15:26 Temperature Pulse Rate 115 H 112 H 107 H Respiratory Rate 20 17 Blood Pressure 103/78 96/78 L Pulse Oximetry 100 100 Oxygen Delivery 04/24/22 15:30 04/24/22 15:45 04/24/22 16:03 Temperature Pulse Rate 109 H 113 H 112 H Respiratory Rate 15 21 H 17 Blood Pressure 93/73 L 96/52 L Pulse Oximetry 100 100 Oxygen Delivery 04/24/22 16:15 04/24/22 16:45 Temperature Pulse Rate 107 H 92 Respiratory Rate 20 17 Blood Pressure Pulse Oximetry Oxygen Delivery Exam Narrative: General: Thin, frail, chronically ill-appearing 67-year-old female, sitting up in bed, comfortable, NARD Neuro: awake, alert and oriented x4, speech clear, no focal neuro deficits noted HEENMT: normocephalic, atraumatic, EOMI, sclerae anicteric Respiratory: clear to auscultation bilateral
--- NOTE | 2022-04-24 17:27 | PC.NURSE ---
Pt to CT scan
[2022-04-24 17:36] LABS: Troponin I < 0.012 ng/mL (0.000-0.034)
[2022-04-24] MEDS: POTASSIUM CHLORIDE INJ 40 MEQ in SODIUM CHLORIDE 0.9% IV 500 ML 130 MEQ IVPB (17:49)
--- NOTE | 2022-04-24 17:55 | ADMGEN ---
This patient, Marleen Maynard, was admitted to IMU Room 949-42 [id number] Patient/family oriented to hospital policies and general routines including ID bracelet, bed and alarms, visiting hours, pain management, procedures, bathroom and other care routines, personal items, smoking policy, room service/diet, and visiting hours. Information on how to activate the Rapid Response Team has been discussed. Patient/Family are encouraged to report perceived risks to care and to ask questions if they do not understand what they are told or what they should do.
[2022-04-24 18:33] LABS: Lipase 21 U/L (23-300); Magnesium 1.6 mg/dL (1.6-2.3)
[2022-04-24] MEDS: SODIUM CHLORIDE 0.9% IV 1,000 ML 75 ML IV CONT (19:45)
--- NOTE | 2022-04-24 20:44 | PC.NURSE ---
1814 admission questions completed- pt has ileostomy LLQ- pt states has had no stool for @ 3 days; c/o nausea-no emesis at this time- but stated as had vomiting at home . Monitor atrial fib/flutter 90's . IV Cardizem infusing at 15mg/ml- from ER
[2022-04-24] MEDS: PANTOPRAZOLE SODIUM IV 40 MG VIAL IV PUSH (21:13)
[2022-04-24] MEDS: MAGNESIUM SULF 1 GM/D5W 100 ML 1 GM/100 ML BAG IVPB (21:13)
[2022-04-24] MEDS: MORPHINE SULFATE (*CRX) 2 MG/ML INJ IV PUSH (21:33)
[2022-04-24] MEDS: ONDANSETRON INJ 4 MG/2 ML VIAL IV PUSH (21:33)
[2022-04-24] MEDS: KCL 20 MEQ/SW 100 ML 100 ML 50 MEQ IVPB (22:30)
[2022-04-24 23:01] LABS: Troponin I < 0.012 ng/mL (0.000-0.034)
[2022-04-25] VITALS (21 sets, daily range): BP systolic 83–128; BP diastolic 51–75; PULSE 68–109; RESP 12–20; TEMP 35.7–37; O2SAT 90–100; BMI 14.6
--- NOTE | 2022-04-25 | ECHO_ITS ---
Patient Info Name: Marleen Maynard Age: 67 years : 1955 Gender: Female Ht: 65 in Wt: 89 lbs BSA: 1.34 m2 HR: 77 bpm BP: 104 / 71 mmHg Heart Rhythm: Atrial Fibrillation Technical Quality: Fair Exam Date: 04/25/2022 2:38 PM Exam Location: [facility] Patient Status: Inpatient Admit Date: 04/25/2022 Staff Ordering Physician: Augie Mittal MD Document Review Attorney: Kimmy Chamorro RDCS Attending Provider: Tana Auguste PA-C Referring Physician: Daxa MUKHERJEE; Exam Type: CA echo doppler color flow Study Info Indications - afib Complete two-dimensional, color flow and Doppler transthoracic echocardiogram is performed. Summary 1. Complete two-dimensional, color flow and Doppler transthoracic echocardiogram is performed. 2. Left ventricular chamber dimension is normal. 3. Left ventricular systolic function is normal, estimated at 60-65%. 4. There is mildly increased left ventricular wall thickness. 5. The left ventricular diastolic function is indeterminate. 6. Left atrial chamber dimension is severely enlarged. 7. Right atrial chamber dimension is moderately enlarged. 8. The mitral valve has thickened leaflets and calcified annulus. 9. There is mild to moderate mitral valve regurgitation. 10. There is mild tricuspid valve regurgitation. 11. There is mild pulmonic regurgitation. Left Ventricle Left ventricular chamber dimension is normal. Left ventricular systolic function is normal, estimated at 60-65%. There is mildly increased left ventricular wall thickness. The left ventricular diastolic function is indeterminate. Right Ventricle Right ventricular chamber dimension is normal. Right ventricular systolic function is normal. Left Atria Left atrial chamber dimension is severely enlarged. Right Atria Right atrial chamber dimension is moderately enlarged. Atrial Septum Intact interatrial septum visualized by color flow imaging. Aortic Valve The aortic valve is trileaflet. There is mild aortic valve sclerosis. There is no aortic valve stenosis. There is trace aortic valve regurgitation. Pulmonic Valve The pulmonic valve is normal. There is no pulmonic valve stenosis. There is mild pulmonic regurgitation. Mitral Valve The mitral valve has thickened leaflets and calcified annulus. There is no mitral valve stenosis. There is mild to moderate mitral valve regurgitation. Tricuspid Valve The tricuspid valve leaflets are normal. There is no significant tricuspid valve stenosis. There is mild tricuspid valve regurgitation. No pulmonary hypertension, estimated pulmonary arterial systolic pressure is 33 mmHg. Pericardium/Pleural The pericardium appears normal. There is trivial pericardial effusion. Inferior Vena Cava Normal inferior vena cava with <50% collapse upon inspiration consistent with elevated right atrial pressure, 10 mmHg. Aorta The aortic root size at the sinus of Valsalva is normal. Left Ventricular Outflow Tract Name Value Normal LVOT 2D LVOT Diameter 2.1 cm LVOT Doppler LVOT Peak Gradient 2 mmHg LV
[2022-04-25] MEDS: dilTIAZem 100 MG/100 ML 100 MG/100 ML BAG 15 MG IV CONT ×2 (00:08→06:51)
[2022-04-25] MEDS: MORPHINE SULFATE (*CRX) 2 MG/ML INJ IV PUSH ×3 (05:16→22:05)
[2022-04-25 05:49] LABS: Basophils Percent Auto 0.2 % (0.2-1.2); Eosinophils Percent Auto 0.2 % (0-4.4); Hematocrit 31.8 % (37.0-47.0); Immature Granulocyte Absolute 0.37 K/mm3 (0.00-0.031); Immature Granulocyte Percent A 2.9 % (0-0.5); Immature Platelet Fraction Pct 6.2 % (0.9-11.2); Lymphocytes Absolute Auto 1.45 K/mm3 (0.9-3.2); Lymphocytes Percent Auto 11.3 % (18.3-44.2); Mean Corpuscular HGB Conc 34.6 g/dl (32-36); Mean Corpuscular Hemoglobin 32.1 pg (26-34); Mean Corpuscular Volume 92.7 fl (80-100); Mean Platelet Volume 10.9 fl (7.4-10.4); Monocytes Absolute Auto 0.6 K/mm3 (0.1-0.6); Monocytes Percent Auto 4.3 % (2.6-8.5); Neutrophils Absolute Auto 10.5 K/mm3 (1.3-6.7); Neutrophils Percent Auto 81.1 % (45.5-73.1); Platelet Count Result 85 k/mm3 (150-375); Red Blood Count 3.43 M/mm3 (4.2-5.4); Red Cell Distribution Width 13.9 % (11.5-14.5); White Blood Count 12.9 K/mm3 (4.5-10.0)
[2022-04-25 06:00] LABS: Anion Gap 7 mmol/L (8-16); Blood Urea Nitrogen 23 mg/dL (7-17); Calcium 8.5 mg/dL (8.4-10.2); Carbon Dioxide 28 mmol/L (22-30); Chloride 92 mmol/L (98-107); Estimated CRCL calculation 48 ml/min; Estimated Glomerular Filt Rate > 60; Glucose 82 mg/dL (65-110); Magnesium 1.6 mg/dL (1.6-2.3); Potassium 3.2 mmol/L (3.4-5.0); Sodium 127 mmol/L (137-145)
[2022-04-25] MEDS: SODIUM CHLORIDE 0.9% IV 1,000 ML 75 ML IV CONT ×2 (09:04→22:06)
[2022-04-25] MEDS: PANTOPRAZOLE SODIUM IV 40 MG VIAL IV PUSH ×2 (09:04→20:47)
--- NOTE | 2022-04-25 10:11 | PC.NURSE ---
Spoke with [facility] transfer center at 1010. Update on patient status and last set of vitals. No bed available at this time.
[2022-04-25] MEDS: KCL 20 MEQ/SW 100 ML 100 ML 50 MEQ IVPB (10:38)
[2022-04-25] MEDS: MAGNESIUM SULF 2 GM/WATER 50ML 2 GM/50 ML BAG IVPB (10:39)
--- NOTE | 2022-04-25 11:09 | PM.CNCAR ---
Assessment and Plan Assessment and plan (1) Atrial fibrillation with rapid ventricular response: Code(s): I48.91 - Unspecified atrial fibrillation Status: Acute Assessment and Plan: She has history of chronic atrial fibrillation. Previous decision is to not anticoagulate or use anti-platelet medications based on previous decisions made by her primary laboratory mechanic helper. Will not change this plan for now. She was noted be in rapid ventricular response upon presentation. Likely secondary to marked dehydration from nausea and vomiting as well as elevated from her a UTI. Will decrease her diltiazem drip to 10 milligram/hour. Will likely still need IV diltiazem until able to take p.o.. A 2D echocardiogram Doppler will be ordered and reviewed. Will discontinue her digoxin completely. Uncertain why she is on digoxin anyway. Her electrolytes have been replaced. She has received magnesium and potassium. Potassium is still low will give her an additional 40 mEq IV x1. (2) Urinary tract infection: Code(s): N39.0 - Urinary tract infection, site not specified Status: Acute Assessment and Plan: On antibiotics (3) Acute dehydration: Code(s): E86.0 - Dehydration Status: Acute Assessment and Plan: Continue fluid (4) B-cell lymphoma: Code(s): C85.10 - Unspecified B-cell lymphoma, unspecified site Status: Acute Assessment and Plan: Treatment of arm (5) Electrolyte imbalance: Code(s): E87.8 - Other disorders of electrolyte and fluid balance, not elsewhere classified Status: Acute Assessment and Plan: Hyponatremic, hypokalemic, hypomagnesemic. Replace electrolytes p.r.n. (6) Nausea and vomiting: Code(s): R11.2 - Nausea with vomiting, unspecified Status: Acute Assessment and Plan: Secondary to obstruction. In the process of being transferred to [place] History of Present Illness History of Present Illness Consult date/time: 04/25/22 11:09 Requesting physician: Ramon Roberts MD Consult reason: atrial fibrillation Reason For Visit: A fib w RVR/Hyponatremia/Hypokalemia his of B cell Narrative: Date of service: 04/25/2022 Reason consultation: Atrial fibrillation Requesting provider: Dr. Roberts History patient is a 67-year-old female has a history of B-cell lymphoma status post chemo and radiation, ileostomy, chronic atrial fibrillation. She is not on anticoagulation because she has had some ileostomy bleeding in the past. She states this was decided on by her primary laboratory mechanic helper at [place]. She had some outpatient labs performed and she was hyponatremic and was told to go to the nearest emergency department. She had been nauseated, vomiting and had abdominal pain over the past several days. She was recently at [place] and was discharged about 5-6 days ago. She was extremely weak, dizzy and presyncopal. She is quite dehydrated. Urinalysis does show evidence of urinary tract infection also and her white blood cell count was significantly elevated. She was found to be in atrial fibrillation with rapid ventricular response also. She denies any chest pain, shortness breath, syncope, paroxysmal nocturnal dyspnea, orthopnea, edema or palpitations. She has been admitted and given some IV fluids and she is feeling a little bit better today. NG was placed for probable ileus/bowel obstruction. She was started on a diltiazem drip which has controlled her heart rate Review of Systems Review of Systems: All systems reviewed & are unremarkable except as noted in HPI and below Constitutional: Constitutional: Reports fatigue, Reports lethargy and Reports weakness Eyes: Eyes: Denies blurry vision ENT: Reports Normal hearing present Cardiovascular: Cardiovascular: Denies diaphoresis and Denies leg edema Respiratory: Respiratory: Denies dyspnea Gastrointestinal: Gastrointestinal: Reports abdominal pain, Reports nausea and Reports vomiti
[2022-04-25] MEDS: KCL 40 MEQ/WATER 100 ML 100 ML 25 ML IVPB (12:48)
[2022-04-25] MEDS: dilTIAZem 100 MG/100 ML 100 MG/100 ML BAG 10 MG IV CONT (14:47)
[2022-04-25] MEDS: CENTRAL LINE FLUSH 10 ML IV PUSH ×2 (14:47→22:07)
--- NOTE | 2022-04-25 16:17 | P.PNIM_ITS ---
Progress Note: A&P Assessment and Plan (1) Small bowel obstruction: Code(s): K56.609 - Unspecified intestinal obstruction, unspecified as to partial versus complete obstruction Status: Acute Assessment and Plan: Patient presented with persistent abdominal pain, nausea, and vomiting, and no output from ileostomy 24 hours prior to presentation * CT of the abdomen/pelvis showed severe distal small-bowel obstruction possibly secondary to midline adhesion in the upper pelvis * Given patient's surgical history and extensive care completed at [facility], spoke with transfer center today. Patient accepted for placement at [facility] under care of Dr. Vallecillo with bone marrow and transplant. Awaiting bed availability * Continue with NG decompression and NPO diet * Appreciate general surgery consultation * Continue IV fluids * Supportive care. Analgesics and antiemetics available as needed (2) Atrial fibrillation with rapid ventricular response: Code(s): I48.91 - Unspecified atrial fibrillation Status: Acute Assessment and Plan: EKG on presentation demonstrated atrial fibrillation with rapid ventricular response with heart rate 163 * Likely related to acute dehydration, electrolyte imbalance, UTI * Continue diltiazem drip, decreased to 10 milligrams/hour per Cardiology. Continue IV diltiazem as patient remains NPO * Echocardiogram is pending * Digoxin discontinued per Cardiology * Metoprolol succinate on hold while NPO * Appreciate cardiology consultation (3) B-cell lymphoma: Code(s): C85.10 - Unspecified B-cell lymphoma, unspecified site Status: Acute Assessment and Plan: currently in remission * reports last chemotherapy was in January * followed by oncology at [facility], [facility]. * Patient being transferred to [facility] for evaluation (4) Electrolyte abnormality: Code(s): E87.8 - Other disorders of electrolyte and fluid balance, not elsewhere classified Status: Acute Assessment and Plan: Hypokalemia: Potassium 2.8 on presentation likely secondary to vomiting. Continue IV potassium supplementation Hypomagnesemia: Mag 1.6. IV magnesium supplementation Hyponatremia: Chronic, persistent issue. Sodium 127 today. Continue with IV fluids and monitor labs closely (5) Abnormal urinalysis: Code(s): R82.90 - Unspecified abnormal findings in urine Status: Acute Assessment and Plan: UA is abnormal on presentation with 1+ leuk esterase and >75 WBC. WBC elevated * Continue with IV ceftriaxone * Urine culture is pending (6) Abnormal CT of the abdomen: Code(s): R93.5 - Abnormal findings on diagnostic imaging of other abdominal regions, including retroperitoneum Status: Acute Assessment and Plan: CT showed moderate right pelvocaliectasis in spite of right nephroureteral stent, which may represent chronic dilation or stent dysfunction. Patient is established with [facility] urology. Reports she was due for stent exchange today, but missed the appointment due to hospitalization. Renal function is appropriate as is urine output. Continue with outpatient follow-up CT also showed possible peroneal/vaginal soft tissue mass. Patient denies pain or bleeding. Will proceed with vaginal ultrasound for further evaluation (7) Elevated brain natriuretic peptide (BNP) level: Code(s): R79.89 - Other specified abnormal findings of blood chemistry Status: Acute Assessment and Plan: BNP is 8600, however patient appears hypovolemic * patient has no history of CHF and CX
--- NOTE | 2022-04-25 16:17 | PM.IMPN ---
Progress Note: A&P Assessment and Plan (1) Small bowel obstruction: Code(s): K56.609 - Unspecified intestinal obstruction, unspecified as to partial versus complete obstruction Status: Acute Assessment and Plan: Patient presented with persistent abdominal pain, nausea, and vomiting, and no output from ileostomy 24 hours prior to presentation CT of the abdomen/pelvis showed severe distal small-bowel obstruction possibly secondary to midline adhesion in the upper pelvis Given patient's surgical history and extensive care completed at [facility], spoke with transfer center today. Patient accepted for placement at [facility] under care of Dr. Vallecillo with bone marrow and transplant. Awaiting bed availability Continue with NG decompression and NPO diet Appreciate general surgery consultation Continue IV fluids Supportive care. Analgesics and antiemetics available as needed (2) Atrial fibrillation with rapid ventricular response: Code(s): I48.91 - Unspecified atrial fibrillation Status: Acute Assessment and Plan: EKG on presentation demonstrated atrial fibrillation with rapid ventricular response with heart rate 163 Likely related to acute dehydration, electrolyte imbalance, UTI Continue diltiazem drip, decreased to 10 milligrams/hour per Cardiology. Continue IV diltiazem as patient remains NPO Echocardiogram is pending Digoxin discontinued per Cardiology Metoprolol succinate on hold while NPO Appreciate cardiology consultation (3) B-cell lymphoma: Code(s): C85.10 - Unspecified B-cell lymphoma, unspecified site Status: Acute Assessment and Plan: currently in remission reports last chemotherapy was in January followed by oncology at [facility], [facility]. Patient being transferred to [facility] for evaluation (4) Electrolyte abnormality: Code(s): E87.8 - Other disorders of electrolyte and fluid balance, not elsewhere classified Status: Acute Assessment and Plan: Hypokalemia: Potassium 2.8 on presentation likely secondary to vomiting. Continue IV potassium supplementation Hypomagnesemia: Mag 1.6. IV magnesium supplementation Hyponatremia: Chronic, persistent issue. Sodium 127 today. Continue with IV fluids and monitor labs closely (5) Abnormal urinalysis: Code(s): R82.90 - Unspecified abnormal findings in urine Status: Acute Assessment and Plan: UA is abnormal on presentation with 1+ leuk esterase and >75 WBC. WBC elevated Continue with IV ceftriaxone Urine culture is pending (6) Abnormal CT of the abdomen: Code(s): R93.5 - Abnormal findings on diagnostic imaging of other abdominal regions, including retroperitoneum Status: Acute Assessment and Plan: CT showed moderate right pelvocaliectasis in spite of right nephroureteral stent, which may represent chronic dilation or stent dysfunction. Patient is established with [facility] urology. Reports she was due for stent exchange today, but missed the appointment due to hospitalization. Renal function is appropriate as is urine output. Continue with outpatient follow-up CT also showed possible peroneal/vaginal soft tissue mass. Patient denies pain or bleeding. Will proceed with vaginal ultrasound for further evaluation (7) Elevated brain natriuretic peptide (BNP) level: Code(s): R79.89 - Other specified abnormal findings of blood chemistry Status: Acute Assessment and Plan: BNP is 8600, however patient appears hypovolemic patient has no history of CHF and CXR shows no signs of volume overload, no cardiomegaly. continue with IV fluids Subjective Date/time seen: 04/25/22 16:17 Interval history: Date of service: 04/25/2022 Marleen Maynard is a 67-year-old female with a history of B-cell lymphoma s/p chemo and radiation currently in remission, history of ileostomy, atrial fibrillation not on anticoagulation, and recent a
--- NOTE | 2022-04-25 19:23 | PM.CNGS ---
Assessment and Plan Assessment and plan (1) Parastomal hernia with obstruction, without gangrene: Code(s): K43.3 - Parastomal hernia with obstruction, without gangrene Status: Acute Assessment and Plan: Nnoted on exam. This appears to be reducible specially with the patient lying on her right side. I have taught the patient how to reduce this herself. I have asked her to roll on her right side periodic Pilar through the day and night and massaged the area when she does so. If this is the cause of her partial small bowel obstruction hopefully this will resolve the problem. ( of note after a PET scan that is to be scheduled the end of this month she is already planning to have a ostomy takedown and the peristomal hernia repair with surgeons at [place]. They just need the go ahead from the PET scan showed that it shows that there is no recurrence of her lymphoma which caused the original problem and the need for the loop ileostomy ). Will plan to repeat abdominal x-rays in a.m. along with labs. Check lactic acid to be sure this is not bowel that may be ischemic. (2) Electrolyte abnormality: Code(s): E87.8 - Other disorders of electrolyte and fluid balance, not elsewhere classified Status: Acute Assessment and Plan: still hypokalemic and hyponatremic. Normal saline going and Medicine is actively trying to correct her potassium levels with riders. (3) Small bowel obstruction: Code(s): K56.609 - Unspecified intestinal obstruction, unspecified as to partial versus complete obstruction Status: Acute Assessment and Plan: Possibly based on 1. Above. She also could have adhesions from the surgery which was required because apparently the lymphoma was causing some type of a more distal bowel blockage. (4) Abnormal CT of the abdomen: Code(s): R93.5 - Abnormal findings on diagnostic imaging of other abdominal regions, including retroperitoneum Status: Acute (5) Urinary tract infection: Code(s): N39.0 - Urinary tract infection, site not specified Status: Acute Assessment and Plan: Gram negative bacilli are being cultured and the patient is on ceftriaxone at this time. (6) Atrial fibrillation with rapid ventricular response: Code(s): I48.91 - Unspecified atrial fibrillation Status: Acute Assessment and Plan: as per cardiology (7) B-cell lymphoma: Code(s): C85.10 - Unspecified B-cell lymphoma, unspecified site Status: Acute Assessment and Plan: patient is being evaluated as to whether not she is in remission. She could then have surgery to correct IV take down the ileostomy and fix the parastomal hernia. This would be ideal situation so we are trying to transfer her to [place] Where she has had all her chemotherapy and treatment for the B-cell lymphoma. (8) Acute hyponatremia: Code(s): E87.1 - Hypo-osmolality and hyponatremia Status: Acute (9) Acute hypokalemia: Code(s): E87.6 - Hypokalemia Status: Acute History of Present Illness Consult details Consult date: 04/25/22 Reason for consult: abdominal pain ( Suspected partial or complete small-bowel obstruction by CT.) Requesting physician: Madison Perrin, Narrative: Marleen Maynard is a 67-year-old white female with a history of B-cell lymphoma s/p chemo and radiation currently in remission. she has a history of placement of a loop ileostomy apparently due to compression of some portion of the bowel more distal prior to her complete treatment of her B-cell lymphoma. She also has a history of atrial fibrillation not on anticoagulation, and recent admission at [facility] for nausea, vomiting electrolyte abnormalities and abdominal pain just discharged about 6 days ago. SHe presented to the emergency department here at [place] today with complaints of vomiting ongoing for 3 days.? The patient states she has not been able to keep a
[2022-04-26] VITALS (20 sets, daily range): BP systolic 99–131; BP diastolic 67–84; PULSE 69–153; RESP 18–20; TEMP 36.2–37.1; O2SAT 91–99
[2022-04-26] MEDS: dilTIAZem 100 MG/100 ML 100 MG/100 ML BAG 10 MG IV CONT (01:23)
[2022-04-26] MEDS: HYDROmorphone HCL INJ (*CRX) 1 MG/ML SYR IV PUSH (01:23)
[2022-04-26] MEDS: HYDROmorphone HCL INJ (*CRX) 1 MG/ML SYR 0.5 MG IV PUSH ×4 (05:24→20:09)
[2022-04-26] MEDS: LEVOTHYROXINE SODIUM INJ 100 MCG/5 ML VIAL 25 MCG IV PUSH (05:25)
[2022-04-26 06:11] LABS: Basophils Percent Auto 0.3 % (0.2-1.2); Eosinophils Percent Auto 0.2 % (0-4.4); Hematocrit 35.7 % (37.0-47.0); Hemoglobin 11.9 g/dL (12.0-15.0); Immature Granulocyte Absolute 0.38 K/mm3 (0.00-0.031); Immature Granulocyte Percent A 3.8 % (0-0.5); Immature Platelet Fraction Pct 5.7 % (0.9-11.2); Lymphocytes Absolute Auto 1.23 K/mm3 (0.9-3.2); Lymphocytes Percent Auto 12.4 % (18.3-44.2); Mean Corpuscular HGB Conc 33.3 g/dl (32-36); Mean Corpuscular Hemoglobin 32.2 pg (26-34); Mean Corpuscular Volume 96.5 fl (80-100); Mean Platelet Volume 10.6 fl (7.4-10.4); Monocytes Absolute Auto 0.4 K/mm3 (0.1-0.6); Monocytes Percent Auto 3.5 % (2.6-8.5); Neutrophils Absolute Auto 7.9 K/mm3 (1.3-6.7); Neutrophils Percent Auto 79.8 % (45.5-73.1); Platelet Count Result 84 k/mm3 (150-375); Red Cell Distribution Width 13.9 % (11.5-14.5)
[2022-04-26 06:23] LABS: Lactic Acid Reflex 0.7 mmol/L (0.7-2.0)
[2022-04-26 06:27] LABS: Alanine Aminotransferase 11 U/L (6-35); Albumin Level 2.7 g/dL (3.5-5.1); Alkaline Phosphatase 73 U/L (38-126); Anion Gap 12 mmol/L (8-16); Aspartate Amino Transferase 16 U/L (14-36); Bilirubin,Total 0.3 mg/dL (0.2-1.3); Blood Urea Nitrogen 13 mg/dL (7-17); Calcium 8.6 mg/dL (8.4-10.2); Carbon Dioxide 22 mmol/L (22-30); Chloride 95 mmol/L (98-107); Estimated CRCL calculation 56 ml/min; Estimated Glomerular Filt Rate > 60; Glucose 57 mg/dL (65-110); Magnesium 1.9 mg/dL (1.6-2.3); Potassium 3.9 mmol/L (3.4-5.0); Sodium 129 mmol/L (137-145)
[2022-04-26] MEDS: DEXTROSE 50% 25 GM/50 ML SYRINGE IV PUSH (06:41)
[2022-04-26] MEDS: CENTRAL LINE FLUSH 10 ML IV PUSH ×3 (06:41→20:11)
[2022-04-26] MEDS: PANTOPRAZOLE SODIUM IV 40 MG VIAL IV PUSH ×2 (08:31→20:11)
[2022-04-26 09:29] LABS: Glucose Point of Care 89 mg/dl (65-105)
[2022-04-26] MEDS: METOPROLOL TARTRATE INJ 5 MG/5 ML VIAL IV PUSH ×2 (09:30→13:32)
[2022-04-26] MEDS: cefTRIAXone 2 GM in SODIUM CHLORIDE 0.9% IV 100 ML 200 ML IVPB (09:30)
--- NOTE | 2022-04-26 09:42 | PM.PNCARD ---
Progress Note: A&P Assessment and Plan (1) Atrial fibrillation with rapid ventricular response: Code(s): I48.91 - Unspecified atrial fibrillation Status: Acute Assessment and Plan: She has history of chronic atrial fibrillation. Previous decision is to not anticoagulate or use anti-platelet medications based on previous decisions made by her primary japanese professor. Will not change this plan for now. Continue IV diltiazem. Give a dose of IV metoprolol 5 mg IV x1. If she responds better to metoprolol, will schedule IV metoprolol and try to reduce her diltiazem (2) Urinary tract infection: Code(s): N39.0 - Urinary tract infection, site not specified Status: Acute Assessment and Plan: On antibiotics (3) Acute dehydration: Code(s): E86.0 - Dehydration Status: Acute Assessment and Plan: Continue fluid (4) B-cell lymphoma: Code(s): C85.10 - Unspecified B-cell lymphoma, unspecified site Status: Acute Assessment and Plan: Treatment of arm (5) Electrolyte imbalance: Code(s): E87.8 - Other disorders of electrolyte and fluid balance, not elsewhere classified Status: Acute Assessment and Plan: Hyponatremic, hypokalemic, hypomagnesemic. Improved overall. Replace electrolytes p.r.n. (6) Nausea and vomiting: Code(s): R11.2 - Nausea with vomiting, unspecified Status: Acute Assessment and Plan: Secondary to obstruction. In the process of being transferred to [place] Subjective Date/time seen: 04/26/22 09:42 Interval history: Marleen Maynard is a 67-year-old female with a history of B-cell lymphoma s/p chemo and radiation currently in remission, history of ileostomy, atrial fibrillation not on anticoagulation, and recent admission at [facility] for nausea, vomiting, abdominal pain just discharged about 5 days ago who?is seen in follow-up for small-bowel obstruction and AFib with RVR. Date of service 04/26/2022: Waiting better [place]. She denies any chest pain or shortness breath. Heart rate is elevated today despite IV diltiazem. NG in place Review of Systems Review of Systems: All systems reviewed & are unremarkable except as noted in HPI and below Constitutional: Constitutional: Denies excessive sweating, Reports fatigue, Denies headache(s), Reports lethargy and Reports weakness Eyes: Eyes: Denies blurry vision ENT: Reports Normal hearing present, Denies headache(s) and Denies lip swelling Cardiovascular: Cardiovascular: Denies diaphoresis, Denies leg edema and Denies dyspnea Respiratory: Respiratory: Denies dyspnea Gastrointestinal: Gastrointestinal: Reports abdominal pain, Reports nausea and Reports vomiting Genitourinary: Genitourinary: Denies hematuria Musculoskeletal: Musculoskeletal: Denies back pain Integumentary/Breasts: Skin/Breast: Denies dry skin and Denies erythema Neurologic: Reports Normal hearing present, Denies Abnormal speech present, Denies behavioral changes, Denies confusion, Denies headache(s) and Reports weakness Psychiatric: Psychiatric: Denies behavioral changes and Denies confusion Endocrine: Endocrine: Denies excessive sweating and Reports fatigue Hematologic/Lymphatic: Hematologic/Lymphatic: Denies easy bleeding Allergic/Immunologic: Allergic/Immunologic: Denies GI upset with certain foods and Denies lip swelling Exam Narrative: Alert oriented appears stated age Const: General: comfortable; No confusion or uncomfortable Orientation/consciousness: No confusion HENMT: Face/Nose/Sinus: Normal nares present Mouth: Yes moist mucous membranes Other: NG in place Eyes: General: appearance normal, both eyes and all related structures Sclera: sclerae normal Neck: Neck: supple Carotids: no bruits Chest: Other: No reproducible chest wall pain to palpation Resp: Effort & Inspection: normal respiratory effort Auscultation: clear to auscultation bilaterally Cardio: R
--- NOTE | 2022-04-26 10:16 | PM.PNGS ---
Progress Note: A&P Assessment and Plan (1) Parastomal hernia with obstruction, without gangrene: Code(s): K43.3 - Parastomal hernia with obstruction, without gangrene Status: Acute Assessment and Plan: patient examined again today supine and I was able to reduce this while she was supine today. Now that she knows she has it she has also been able to reduce it. However, she still is not having gas passed to the ostomy. (2) Small bowel obstruction: Code(s): K56.609 - Unspecified intestinal obstruction, unspecified as to partial versus complete obstruction Status: Acute Assessment and Plan: X-ray still showing small bowel obstruction so will continue NG. Lactic acid is normal so doubt that there is any ischemia to bowel caused by this. Since she is close to being able to have this hernia taken down and they would be able to lyse adhesions at the time would hold off on any surgery for now if possible. Will give her little more time with NG decompression. I have asked her to try to keep the hernia reduced and will have her start getting up walking today. She has been bed rest so far because of her bad electrolyte imbalances and concern about dizziness and falling. (3) Electrolyte imbalance: Code(s): E87.8 - Other disorders of electrolyte and fluid balance, not elsewhere classified Status: Acute Assessment and Plan: Potassium normal today Sodium still low but medicine working on this. (4) Urinary tract infection: Code(s): N39.0 - Urinary tract infection, site not specified Status: Acute Assessment and Plan: Culture pending. Bacteria not identified. There is gram negative bacilli noted on Gram stain. Concern may be that the current stent should be removed in the face of infection. This could be leading to a ileus if it is causing the infection to persist. Agree with current antibiotics. Preliminary blood culture from and anaerobic bottle is also showing a Gram-negative bacilli. Patient may have sepsis based on ascending urinary tract infection to the pelvis of the kidney on the side where the current stent is in place. (She states that this was placed when she had the tumor prior to chemo when her right ureter was compressed. and she is supposed to be having it removed. If unable to be transferred soon for her urologist at [facility] to address we may need to consider consult to neurology to see if they feel comfortable removing this. This may help clear the infection which may be causing an ileus). Subjective Subjective Date/Time Seen: 04/26/22 08:16 Patient reports: no new complaints and still having pain ( Occasional cramping across the mid abdomen) Interval history: patient has not noticed any gas or stool in her ostomy. Patient is anxious to get transferred to [facility] to follow-up with her current oncologist and surgeons who are planning the takedown of her ileostomy and repair of hernia. (Probably needs a repeat PET scan to confirm remission of her lymphoma prior to proceeding to surgery). Review of Systems Review of Systems: All systems reviewed & are unremarkable except as noted in HPI and below Constitutional: Constitutional: Reports as per HPI, Denies chills and Denies fever(s) Cardiovascular: Cardiovascular: Denies chest pain and Denies dyspnea Respiratory: Respiratory: Reports no additional respiratory complaints and Denies dyspnea Gastrointestinal: Gastrointestinal: Reports as per HPI Musculoskeletal: Musculoskeletal: Reports no additional musculoskeletal complaints Neurologic: Denies memory loss Psychiatric: Psychiatric: Denies memory loss Exam Const: General: cooperative, comfortable, no acute distress, alert, awake, ill appearing and cachectic; No confusion Orientation/consciousness: patient oriented x3 and No confusion Chest: Chest palpation & inspection: normal inspection of the chest Resp: Effort & Inspection: normal resp
[2022-04-26] MEDS: DEXTROSE 5%/0.9% SOD CHL 1,000 ML 75 ML IV CONT (11:37)
[2022-04-26] MEDS: dilTIAZem 100 MG/100 ML 100 MG/100 ML BAG 15 MG IV CONT (11:43)
[2022-04-26 12:31] LABS: Glucose Point of Care 92 mg/dl (65-105)
--- NOTE | 2022-04-26 15:40 | P.PNIM_ITS ---
Progress Note: A&P Assessment and Plan (1) Small bowel obstruction: Code(s): K56.609 - Unspecified intestinal obstruction, unspecified as to partial versus complete obstruction Status: Acute Assessment and Plan: Patient presented with persistent abdominal pain, nausea, and vomiting, and no output from ileostomy 24 hours prior to presentation * CT of the abdomen/pelvis showed severe distal small-bowel obstruction possibly secondary to midline adhesion in the upper pelvis * Abdominal x-ray today shows persistent obstruction * Given patient's surgical history and extensive care completed at [facility], spoke with transfer center and patient accepted for placement at [facility] under care of Dr. Vallecillo with bone marrow and transplant on 04/25/22. Awaiting bed availability * Continue with NG decompression and NPO diet * Appreciate general surgery consultation * Continue gentle IV fluids * Supportive care. Analgesics and antiemetics available as needed (2) Atrial fibrillation with rapid ventricular response: Code(s): I48.91 - Unspecified atrial fibrillation Status: Acute Assessment and Plan: EKG on presentation demonstrated atrial fibrillation with rapid ventricular response with heart rate 163 * Likely related to acute dehydration, electrolyte imbalance, UTI * Continue diltiazem drip, 10 milligrams/hour per Cardiology. * Echocardiogram reviewed * Digoxin discontinued per Cardiology * Metoprolol succinate on hold while NPO * Appreciate cardiology consultation (3) Bacteremia: Code(s): R78.81 - Bacteremia Status: Acute Assessment and Plan: Blood culture with growth of Klebsiella oxytoca in 1 of 2 bottles * Ceftriaxone increased to 2 g daily * Await final blood culture results * Appreciate ID PharmD recommendations (4) UTI (urinary tract infection): Code(s): N39.0 - Urinary tract infection, site not specified Status: Acute Assessment and Plan: UA abnormal on presentation with 1+ leuk esterase and >75 WBC. WBC elevated * Continue with IV ceftriaxone * Urine culture with growth of >100k gram negative bacilli * Await culture results (5) B-cell lymphoma: Code(s): C85.10 - Unspecified B-cell lymphoma, unspecified site Status: Acute Assessment and Plan: currently in remission * reports last chemotherapy was in January * followed by oncology at [facility], [facility]. * Patient being transferred to [facility] for evaluation (6) Electrolyte abnormality: Code(s): E87.8 - Other disorders of electrolyte and fluid balance, not elsewhere classified Status: Acute Assessment and Plan: Hypokalemia: Resolved. Potassium 3.9 today Hypomagnesemia: Mag 1.9 today Hyponatremia: Chronic, persistent issue. Sodium 129 today. IV fluids drainage soon to D5NS due to hypoglycemia Recheck sodium this afternoon (7) Abnormal CT of the abdomen: Code(s): R93.5 - Abnormal findings on diagnostic imaging of other abdominal regions, including retroperitoneum Status: Acute Assessment and Plan: CT showed moderate right pelvocaliectasis in spite of right nephroureteral stent, which may represent chronic dilation or stent dysfunction. Patient is established with [facility] urology. Reports she was due for stent exchange today, but missed the appointment due to hospitalization. Renal function is appropriate as is urine output. Continue with outpatient follow-up CT also showed possible peroneal/vaginal soft tissue mass. Patient denies pain or bleeding. Discussed with corrine
--- NOTE | 2022-04-26 15:40 | PM.IMPN ---
Progress Note: A&P Assessment and Plan (1) Small bowel obstruction: Code(s): K56.609 - Unspecified intestinal obstruction, unspecified as to partial versus complete obstruction Status: Acute Assessment and Plan: Patient presented with persistent abdominal pain, nausea, and vomiting, and no output from ileostomy 24 hours prior to presentation CT of the abdomen/pelvis showed severe distal small-bowel obstruction possibly secondary to midline adhesion in the upper pelvis Abdominal x-ray today shows persistent obstruction Given patient's surgical history and extensive care completed at [facility], spoke with transfer center and patient accepted for placement at [facility] under care of Dr. Vallecillo with bone marrow and transplant on 04/25/22. Awaiting bed availability Continue with NG decompression and NPO diet Appreciate general surgery consultation Continue gentle IV fluids Supportive care. Analgesics and antiemetics available as needed (2) Atrial fibrillation with rapid ventricular response: Code(s): I48.91 - Unspecified atrial fibrillation Status: Acute Assessment and Plan: EKG on presentation demonstrated atrial fibrillation with rapid ventricular response with heart rate 163 Likely related to acute dehydration, electrolyte imbalance, UTI Continue diltiazem drip, 10 milligrams/hour per Cardiology. Echocardiogram reviewed Digoxin discontinued per Cardiology Metoprolol succinate on hold while NPO Appreciate cardiology consultation (3) Bacteremia: Code(s): R78.81 - Bacteremia Status: Acute Assessment and Plan: Blood culture with growth of Klebsiella oxytoca in 1 of 2 bottles Ceftriaxone increased to 2 g daily Await final blood culture results Appreciate ID PharmD recommendations (4) UTI (urinary tract infection): Code(s): N39.0 - Urinary tract infection, site not specified Status: Acute Assessment and Plan: UA abnormal on presentation with 1+ leuk esterase and >75 WBC. WBC elevated Continue with IV ceftriaxone Urine culture with growth of >100k gram negative bacilli Await culture results (5) B-cell lymphoma: Code(s): C85.10 - Unspecified B-cell lymphoma, unspecified site Status: Acute Assessment and Plan: currently in remission reports last chemotherapy was in January followed by oncology at [facility], [facility]. Patient being transferred to [facility] for evaluation (6) Electrolyte abnormality: Code(s): E87.8 - Other disorders of electrolyte and fluid balance, not elsewhere classified Status: Acute Assessment and Plan: Hypokalemia: Resolved. Potassium 3.9 today Hypomagnesemia: Mag 1.9 today Hyponatremia: Chronic, persistent issue. Sodium 129 today. IV fluids drainage soon to D5NS due to hypoglycemia Recheck sodium this afternoon (7) Abnormal CT of the abdomen: Code(s): R93.5 - Abnormal findings on diagnostic imaging of other abdominal regions, including retroperitoneum Status: Acute Assessment and Plan: CT showed moderate right pelvocaliectasis in spite of right nephroureteral stent, which may represent chronic dilation or stent dysfunction. Patient is established with [facility] urology. Reports she was due for stent exchange today, but missed the appointment due to hospitalization. Renal function is appropriate as is urine output. Continue with outpatient follow-up CT also showed possible peroneal/vaginal soft tissue mass. Patient denies pain or bleeding. Discussed with radiologist to reports ultrasound would not provide any additional information. Recommended external and internal pelvic exam. Patient declines. Would like to address above issues and evaluate this at a later date. (8) Elevated brain natriuretic peptide (BNP) level: Code(s): R79.89 - Other specified abnormal findings of blood chemistry Status: Acute Assessment and Plan:
[2022-04-26 18:37] LABS: Glucose Point of Care 85 mg/dl (65-105)
[2022-04-26] MEDS: MORPHINE SULFATE (*CRX) 2 MG/ML INJ IV PUSH (23:10)
[2022-04-26 23:21] LABS: Glucose Point of Care 109 mg/dl (65-105)
[2022-04-27] VITALS (21 sets, daily range): BP systolic 108–144; BP diastolic 68–100; PULSE 81–151; RESP 14–20; TEMP 36.4–37.4; O2SAT 93–100
[2022-04-27 00:18] LABS: Sodium 125 mmol/L (137-145)
[2022-04-27] MEDS: DEXTROSE 5%/0.9% SOD CHL 1,000 ML 75 ML IV CONT ×2 (00:28→16:51)
[2022-04-27] MEDS: MORPHINE SULFATE (*CRX) 2 MG/ML INJ IV PUSH ×7 (03:07→23:33)
[2022-04-27 05:15] LABS: Hematocrit 36.9 % (37.0-47.0); Hemoglobin 12.5 g/dL (12.0-15.0); Immature Platelet Fraction Pct 7.1 % (0.9-11.2); Mean Corpuscular HGB Conc 33.9 g/dl (32-36); Mean Corpuscular Hemoglobin 32.1 pg (26-34); Mean Corpuscular Volume 94.9 fl (80-100); Mean Platelet Volume 10.9 fl (7.4-10.4); Platelet Count Result 80 k/mm3 (150-375); Red Blood Count 3.89 M/mm3 (4.2-5.4); Red Cell Distribution Width 13.9 % (11.5-14.5); White Blood Count 8.3 K/mm3 (4.5-10.0)
[2022-04-27 05:24] LABS: Lactic Acid Reflex 0.8 mmol/L (0.7-2.0)
[2022-04-27] MEDS: LEVOTHYROXINE SODIUM INJ 100 MCG/5 ML VIAL 25 MCG IV PUSH (06:07)
[2022-04-27] MEDS: dilTIAZem 100 MG/100 ML 100 MG/100 ML BAG 10 MG IV CONT ×2 (06:08→13:26)
[2022-04-27] MEDS: CENTRAL LINE FLUSH 10 ML IV PUSH ×5 (06:14→20:10)
--- NOTE | 2022-04-27 07:53 | PC.NURSE ---
Pt heart rate got up to the 180's and stating that she was in VTACH so I went to assess the patient. Upon entering her room I found the patient in the bathroom without assistance and found that she had disconnected herself from the suction going to her NG tube. This is not the first incident of her removing her suction and ambulating without assistance. I educated the patient on safety and how important it was to put on her call light before she gets out of bed and that her heart rate reaches dangerous levels when she does get out of bed. Patient states whatever, I dont care anymore. I cant wait on you all to do your jobs.
[2022-04-27 07:55] LABS: Anion Gap 6 mmol/L (8-16); Blood Urea Nitrogen 9 mg/dL (7-17); Calcium 8.6 mg/dL (8.4-10.2); Carbon Dioxide 24 mmol/L (22-30); Chloride 97 mmol/L (98-107); Estimated CRCL calculation 61 ml/min; Estimated Glomerular Filt Rate > 60; Glucose 101 mg/dL (65-110); Magnesium 1.7 mg/dL (1.6-2.3); Potassium 3.2 mmol/L (3.4-5.0); Sodium 127 mmol/L (137-145)
--- NOTE | 2022-04-27 08:32 | PM.PNGS ---
Progress Note: A&P Assessment and Plan (1) Parastomal hernia with obstruction, without gangrene: Code(s): K43.3 - Parastomal hernia with obstruction, without gangrene Status: Acute Assessment and Plan: Patient examined again today supine and I was able to reduce this while she was supine today. Now that she knows she has it she has also been able to reduce it. However, she still is not having gas pass to the ostomy bag. Lactic acid again normal today. Have asked the patient to continue to try to keep this hernia reduced. (2) Small bowel obstruction: Code(s): K56.609 - Unspecified intestinal obstruction, unspecified as to partial versus complete obstruction Status: Acute Assessment and Plan: X-ray still showing small bowel obstruction so will continue NG to LIS. Lactic acid is normal so doubt that there is any ischemia to bowel caused by this. Since she is close to being able to have this hernia taken down and they would be able to lyse adhesions at that time, would hold off on any surgery for now if possible. Will give her little more time with NG decompression. I have asked her to try to keep the parastomal hernia reduced and nurses to have her start getting up walking today. She has been bed rest so far because of her bad electrolyte imbalances and concern about dizziness and falling. (3) Electrolyte imbalance: Code(s): E87.8 - Other disorders of electrolyte and fluid balance, not elsewhere classified Status: Acute Assessment and Plan: Potassium low again today Sodium still low but medicine working on this. (4) Urinary tract infection: Code(s): N39.0 - Urinary tract infection, site not specified Status: Acute Assessment and Plan: Culture pending. Bacteria not identified. There is gram negative bacilli noted on Gram stain. (however blood culture is positive and was a Gram-negative bacilli it is Klebsiella oxytoca) Concern may be that the current stent should be removed in the face of infection. This could be leading to a ileus if it is causing the infection to persist. Agree with current antibiotics. Preliminary blood culture from and anaerobic bottle is also showing a Gram-negative bacilli. (now identified as Klebsiella oxytoca sensitive to ceftriaxone which the patient is on) Patient may have sepsis based on ascending urinary tract infection to the pelvis of the kidney on the side where the current stent is in place. (She states that this was placed when she had the tumor prior to chemo when her right ureter was compressed. and she is supposed to be having it removed. If unable to be transferred soon for her urologist at [facility] to address we may need to consider consult to neurology to see if they feel comfortable removing this. This may help clear the infection which may be causing an ileus) (5) Atrial fibrillation with rapid ventricular response: Code(s): I48.91 - Unspecified atrial fibrillation Status: Acute Assessment and Plan: See cardiology notes. (6) Bacteremia: Code(s): R78.81 - Bacteremia Status: Acute Assessment and Plan: See note above under UTI. Continue antibiotics (7) Hypoalbuminemia due to protein-calorie malnutrition: Code(s): E88.09 - Other disorders of plasma-protein metabolism, not elsewhere classified; E46 - Unspecified protein-calorie malnutrition Status: Acute Assessment and Plan: Since patient has good is not able to be used would recommend now starting TPN through her port. That is a central line the other solutions and her potassium supplement could be given through her peripheral IV. Will order Clinimix and asked hospitalist if they want to manage or if they need us to. (Hopefully patient will be transferred soon to her primary oncology team at [facility] which may be able to take over this treatment). Subjective Subjective Date/Time Seen: 04/27/22 08:32 Patient rep
--- NOTE | 2022-04-27 09:10 | PM.PNCARD ---
Progress Note: A&P Assessment and Plan (1) Atrial fibrillation with rapid ventricular response: Code(s): I48.91 - Unspecified atrial fibrillation Status: Acute Assessment and Plan: She has history of chronic atrial fibrillation. Previous decision is to not anticoagulate or use anti-platelet medications based on previous decisions made by her primary bait maker. Will not change this plan for now. Continue IV diltiazem. Seems like she responds better to metoprolol. Will schedule IV metoprolol and try to wean off the diltiazem. (2) Urinary tract infection: Code(s): N39.0 - Urinary tract infection, site not specified Status: Acute Assessment and Plan: On antibiotics (3) Acute dehydration: Code(s): E86.0 - Dehydration Status: Acute Assessment and Plan: Continue fluid (4) B-cell lymphoma: Code(s): C85.10 - Unspecified B-cell lymphoma, unspecified site Status: Acute Assessment and Plan: Treatment of arm (5) Electrolyte imbalance: Code(s): E87.8 - Other disorders of electrolyte and fluid balance, not elsewhere classified Status: Acute Assessment and Plan: Hyponatremic, hypokalemic, hypomagnesemic. Improved overall. Replace electrolytes p.r.n. (6) Nausea and vomiting: Code(s): R11.2 - Nausea with vomiting, unspecified Status: Acute Assessment and Plan: Secondary to obstruction. In the process of being transferred to [facility] Date/time seen: 04/27/22 09:10 Cardiology follow up for atrial fibrillation Afib with RVR starting around 0430 this morning with HR in the 160's- 180's. She denies feeling any palpitations, chest pain, shortness of breath. Only complaint is abdominal discomfort. She is anxious to get a bed at [facility]. Review of Systems Review of Systems: All systems reviewed & are unremarkable except as noted in HPI and below Constitutional: Constitutional: Denies excessive sweating, Reports fatigue, Denies headache(s), Reports lethargy and Reports weakness Eyes: Eyes: Denies blurry vision ENT: Reports Normal hearing present, Denies headache(s) and Denies lip swelling Cardiovascular: Cardiovascular: Denies diaphoresis, Denies leg edema and Denies dyspnea Respiratory: Respiratory: Denies dyspnea Gastrointestinal: Gastrointestinal: Reports abdominal pain, Reports nausea and Reports vomiting Genitourinary: Genitourinary: Denies hematuria Musculoskeletal: Musculoskeletal: Denies back pain Integumentary/Breasts: Skin/Breast: Denies dry skin and Denies erythema Neurologic: Reports Normal hearing present, Denies Abnormal speech present, Denies behavioral changes, Denies confusion, Denies headache(s) and Reports weakness Psychiatric: Psychiatric: Denies behavioral changes and Denies confusion Endocrine: Endocrine: Denies excessive sweating and Reports fatigue Hematologic/Lymphatic: Hematologic/Lymphatic: Denies easy bleeding Allergic/Immunologic: Allergic/Immunologic: Denies GI upset with certain foods and Denies lip swelling Exam Narrative: Alert oriented appears stated age Const: General: comfortable; No confusion or uncomfortable Orientation/consciousness: No confusion HENMT: Face/Nose/Sinus: Normal nares present Mouth: Yes moist mucous membranes Other: NG in place Eyes: General: appearance normal, both eyes and all related structures Sclera: sclerae normal Neck: Neck: supple Carotids: no bruits Chest: Other: No reproducible chest wall pain to palpation Resp: Effort & Inspection: normal respiratory effort Auscultation: not clear to auscultation bilaterally and rhonchi left lower Cardio: Rate: regular rate Rhythm: abnormal rhythm irregularly irregular Heart sounds: no murmurs GI: Inspection: non-distended GI Palp: Yes Firmness to palpation present (GI) and Yes Tenderness to palpation present (GI) Auscultation: Hyperactive bowel sounds present Skin: Gener
[2022-04-27] MEDS: cefTRIAXone 2 GM in SODIUM CHLORIDE 0.9% IV 100 ML 200 ML IVPB (09:15)
[2022-04-27] MEDS: PANTOPRAZOLE SODIUM IV 40 MG VIAL IV PUSH ×2 (09:15→20:07)
[2022-04-27] MEDS: METOPROLOL TARTRATE INJ 5 MG/5 ML VIAL IV PUSH ×4 (09:25→20:06)
--- NOTE | 2022-04-27 09:26 | PCNFU ---
Nutrition Follow-Up Complete: Severe malnutrition secondary to chronic lymphoma, as evidenced by weight loss, poor appetite and severe muscle wasting and fat loss. Goal: Advance diet as medically able _ not able to meet goal because of small bowel obstruction. New goal: Tolerate TPN at goal rate 40 ml/h: 1182 kcals, 480 g protein, 1210 ml total volume. Electrolytes stable. Pt current nutrition is TPN Clinmix 5/15 E at 40 ml/h. Nutrition recommendation: Obtain phosphorus lab value to monitor for refeeding syndrome. Replace electrolytes. Because of refeeding risk, recommend starting TPN at 20 ml/h and advancing 10 ml q 24 hours, with close monitoring of electrolytes. Discussed plan with SYDNEY Norwood. Last recorded weight is 43.8 kg. Bowel Motility: per ileostomy Labs Reviewed: Na 127, K+ 3.2, BUN 9; Mag 1.9 WNL Meds Noted:cardizem, synthroid, zofran, protonix Skin: WNL Additional Notes: NG is still draining gastric contents. Still awaiting bed at [place]. Starting TPN today via central line. Recommend starting at 20 ml/h due to risk of refeeding syndrome; advance 10 ml q 24 hours with close monitoring of electrolytes especially phosphorus, magnesium, potassium Monitoring diet advancement, weight, labs, plan of care Follow up in 3 days
[2022-04-27 12:06] LABS: Glucose Point of Care 97 mg/dl (65-105)
--- NOTE | 2022-04-27 13:10 | P.PNIM_ITS ---
Progress Note: A&P Assessment and Plan (1) Small bowel obstruction: Code(s): K56.609 - Unspecified intestinal obstruction, unspecified as to partial versus complete obstruction Status: Acute Assessment and Plan: Patient presented with persistent abdominal pain, nausea, and vomiting, and no output from ileostomy 24 hours prior to presentation * CT of the abdomen/pelvis showed severe distal small-bowel obstruction possibly secondary to midline adhesion in the upper pelvis * Abdominal x-ray today shows persistent obstruction * Given patient's surgical history and extensive care completed at [facility], spoke with transfer center and patient accepted for placement at [facility] under care of Dr. Vallecillo with bone marrow and transplant on 04/25/22. Awaiting bed availability. * 04/27 called update to transfer center, still awaiting bed. * Continue with NG decompression and NPO diet * Appreciate general surgery consultation * TPN started today * Supportive care. Analgesics and antiemetics available as needed (2) Atrial fibrillation with rapid ventricular response: Code(s): I48.91 - Unspecified atrial fibrillation Status: Acute Assessment and Plan: EKG on presentation demonstrated atrial fibrillation with rapid ventricular response with heart rate 163 * Likely related to acute dehydration, electrolyte imbalance, UTI * Continue diltiazem drip, increased to 15 milligrams/hour per Cardiology. * Starting metoprolol tartrate 5 mg IV q4h and plan to wean diltiazem * Echocardiogram reviewed * Digoxin discontinued per Cardiology * Metoprolol succinate on hold while NPO * Appreciate cardiology consultation (3) Bacteremia: Code(s): R78.81 - Bacteremia Status: Acute Assessment and Plan: Blood culture with growth of Klebsiella oxytoca in 1 of 2 bottles * Continue IV ceftriaxone 2 g daily based on susceptibility results * 2nd blood culture bottle with no growth to date * Appreciate ID PharmD recommendations (4) UTI (urinary tract infection): Code(s): N39.0 - Urinary tract infection, site not specified Status: Acute Assessment and Plan: UA abnormal on presentation with 1+ leuk esterase and >75 WBC and leukocytosis with WBC 19.9 * Continue with IV ceftriaxone as above * Urine culture with growth of >100k gram negative bacilli * Concerning for ascending UTI given bacteremia * Await culture results. Spoke with [facility] via phone today for final culture results, awaiting return call (5) Ureteral stent occlusion: Code(s): T83.192A - Other mechanical complication of indwelling ureteral stent, initial encounter Status: Acute Assessment and Plan: CT showed moderate right pelvocaliectasis in spite of right nephroureteral stent, which may represent chronic dilation or stent dysfunction. * Patient is established with [facility] urology. Reports she was due for stent exchange on 04/25, but missed the appointment due to hospitalization. * Renal function is appropriate as is urine output. * Concern given UTI with bacteremia. Spoke with urology today and cystogram was completed * Cystogram revealed findings suggestive of obstructing encrustation * Ideally patient will be evaluated by [facility] Urology upon transfer for management of this. Called be [facility] transfer center to update on results. If transfer becomes delayed, will proceed with Urology consultation at this facility. * No need for urgent intervention at this time as patient is responding well to antibiotic therapy and is not septic. (6) B-cell lymphoma: Code(s): C85.10 -
--- NOTE | 2022-04-27 13:10 | PM.IMPN ---
Progress Note: A&P Assessment and Plan (1) Small bowel obstruction: Code(s): K56.609 - Unspecified intestinal obstruction, unspecified as to partial versus complete obstruction Status: Acute Assessment and Plan: Patient presented with persistent abdominal pain, nausea, and vomiting, and no output from ileostomy 24 hours prior to presentation CT of the abdomen/pelvis showed severe distal small-bowel obstruction possibly secondary to midline adhesion in the upper pelvis Abdominal x-ray today shows persistent obstruction Given patient's surgical history and extensive care completed at [facility], spoke with transfer center and patient accepted for placement at [facility] under care of Dr. Vallecillo with bone marrow and transplant on 04/25/22. Awaiting bed availability. 04/27 called update to transfer center, still awaiting bed. Continue with NG decompression and NPO diet Appreciate general surgery consultation TPN started today Supportive care. Analgesics and antiemetics available as needed (2) Atrial fibrillation with rapid ventricular response: Code(s): I48.91 - Unspecified atrial fibrillation Status: Acute Assessment and Plan: EKG on presentation demonstrated atrial fibrillation with rapid ventricular response with heart rate 163 Likely related to acute dehydration, electrolyte imbalance, UTI Continue diltiazem drip, increased to 15 milligrams/hour per Cardiology. Starting metoprolol tartrate 5 mg IV q4h and plan to wean diltiazem Echocardiogram reviewed Digoxin discontinued per Cardiology Metoprolol succinate on hold while NPO Appreciate cardiology consultation (3) Bacteremia: Code(s): R78.81 - Bacteremia Status: Acute Assessment and Plan: Blood culture with growth of Klebsiella oxytoca in 1 of 2 bottles Continue IV ceftriaxone 2 g daily based on susceptibility results 2nd blood culture bottle with no growth to date Appreciate ID PharmD recommendations (4) UTI (urinary tract infection): Code(s): N39.0 - Urinary tract infection, site not specified Status: Acute Assessment and Plan: UA abnormal on presentation with 1+ leuk esterase and >75 WBC and leukocytosis with WBC 19.9 Continue with IV ceftriaxone as above Urine culture with growth of >100k gram negative bacilli Concerning for ascending UTI given bacteremia Await culture results. Spoke with [facility] via phone today for final culture results, awaiting return call (5) Ureteral stent occlusion: Code(s): T83.192A - Other mechanical complication of indwelling ureteral stent, initial encounter Status: Acute Assessment and Plan: CT showed moderate right pelvocaliectasis in spite of right nephroureteral stent, which may represent chronic dilation or stent dysfunction. Patient is established with [facility] urology. Reports she was due for stent exchange on 04/25, but missed the appointment due to hospitalization. Renal function is appropriate as is urine output. Concern given UTI with bacteremia. Spoke with urology today and cystogram was completed Cystogram revealed findings suggestive of obstructing encrustation Ideally patient will be evaluated by [facility] Urology upon transfer for management of this. Called be [facility] transfer center to update on results. If transfer becomes delayed, will proceed with Urology consultation at this facility. No need for urgent intervention at this time as patient is responding well to antibiotic therapy and is not septic. (6) B-cell lymphoma: Code(s): C85.10 - Unspecified B-cell lymphoma, unspecified site Status: Acute Assessment and Plan: currently in remission reports last chemotherapy was in January followed by oncology at [facility], [facility]. Patient being transferred to [facility] for evaluation (7) Electrolyte abnormality: Code(s): E87.8 - Other disorders of electrolyte and fluid balance, not elsewhere classi
[2022-04-27] MEDS: POTASSIUM CHLORIDE INJ 40 MEQ in SODIUM CHLORIDE 0.9% IV 500 ML 130 MEQ IVPB (13:27)
[2022-04-27] MEDS: FAT EMULSIONS IV 20% 250 ML 20.83 ML IVPB (13:27)
[2022-04-27] MEDS: AMINO ACIDS 5%/D15W/E-LYTES/CA 2,000 ML with MULTIVITAMINS-12 INJ VIAL 1 2.5 ML, MULTIV... 40 ML IV CONT (13:27)
[2022-04-27] MEDS: ONDANSETRON INJ 4 MG/2 ML VIAL IV PUSH (13:43)
[2022-04-27 17:40] LABS: Glucose Point of Care 138 mg/dl (65-105)
[2022-04-27] MEDS: dilTIAZem 100 MG/100 ML 100 MG/100 ML BAG 15 MG IV CONT (20:30)
[2022-04-27 23:42] LABS: Glucose Point of Care 139 mg/dl (65-105)
[2022-04-28] VITALS (23 sets, daily range): BP systolic 110–134; BP diastolic 65–94; PULSE 67–98; RESP 14–20; TEMP 36.4–37; O2SAT 97–100
--- NOTE | 2022-04-28 01:05 | PC.NURSE ---
04/28/22 0105- Spoke with [facility] transfer center. Transfer Center states that there are still no beds available at this time, but the Pt is still on the transfer list.
[2022-04-28] MEDS: METOPROLOL TARTRATE INJ 5 MG/5 ML VIAL IV PUSH ×3 (01:11→10:12)
[2022-04-28] MEDS: MORPHINE SULFATE (*CRX) 2 MG/ML INJ IV PUSH ×7 (02:25→23:45)
--- NOTE | 2022-04-28 02:48 | PC.NURSE ---
04/27/[id number]- Pt angry and agitated towards staff. Pt refusing to continue to have the bed alarm on despite re-education on importance for safety concerns. Pt states, if you continue to turn that bed alarm on me, I will keep setting it off. I don't need the bed alarm. This is ridiculous! Pt also states that she does not want this RN and Didi WHALEN to take part in her care tomorrow. Charge nurse, Kim notified.
[2022-04-28] MEDS: dilTIAZem 100 MG/100 ML 100 MG/100 ML BAG 15 MG IV CONT ×3 (03:34→18:07)
[2022-04-28] MEDS: DEXTROSE 5%/0.9% SOD CHL 1,000 ML 75 ML IV CONT (05:23)
[2022-04-28] MEDS: CENTRAL LINE FLUSH 10 ML IV PUSH ×4 (05:31→14:28)
[2022-04-28] MEDS: CENTRAL LINE FLUSH 20 ML IV PUSH ×2 (05:31→06:41)
[2022-04-28] MEDS: LEVOTHYROXINE SODIUM INJ 100 MCG/5 ML VIAL 25 MCG IV PUSH (05:38)
[2022-04-28 06:06] LABS: Partial Thromboplastin Time 29.5 SECONDS (22.3-36.8)
[2022-04-28 06:54] LABS: Basophils Percent Auto 0.5 % (0.2-1.2); Eosinophils Percent Auto 0.1 % (0-4.4); Hematocrit 33.5 % (37.0-47.0); Hemoglobin 11.3 g/dL (12.0-15.0); Immature Granulocyte Absolute 0.69 K/mm3 (0.00-0.031); Immature Granulocyte Percent A 8.3 % (0-0.5); Immature Platelet Fraction Pct 6.9 % (0.9-11.2); Lymphocytes Absolute Auto 0.95 K/mm3 (0.9-3.2); Lymphocytes Percent Auto 11.4 % (18.3-44.2); Mean Corpuscular HGB Conc 33.7 g/dl (32-36); Mean Corpuscular Volume 94.9 fl (80-100); Mean Platelet Volume 11.5 fl (7.4-10.4); Monocytes Absolute Auto 0.2 K/mm3 (0.1-0.6); Monocytes Percent Auto 2.9 % (2.6-8.5); Neutrophils Absolute Auto 6.4 K/mm3 (1.3-6.7); Neutrophils Percent Auto 76.8 % (45.5-73.1); Platelet Count Result 59 k/mm3 (150-375); Red Blood Count 3.53 M/mm3 (4.2-5.4); White Blood Count 8.3 K/mm3 (4.5-10.0)
[2022-04-28 07:15] LABS: Alanine Aminotransferase 13 U/L (6-35); Albumin Level 2.4 g/dL (3.5-5.1); Alkaline Phosphatase 62 U/L (38-126); Anion Gap 5 mmol/L (8-16); Aspartate Amino Transferase 19 U/L (14-36); Bilirubin,Total 0.2 mg/dL (0.2-1.3); Blood Urea Nitrogen 7 mg/dL (7-17); Calcium 7.8 mg/dL (8.4-10.2); Carbon Dioxide 23 mmol/L (22-30); Chloride 98 mmol/L (98-107); Estimated CRCL calculation 74 ml/min; Estimated Glomerular Filt Rate > 60; Glucose 123 mg/dL (65-110); Magnesium 1.6 mg/dL (1.6-2.3); Phosphorus 1.6 mg/dL (2.5-4.5); Potassium 3.2 mmol/L (3.4-5.0); Sodium 126 mmol/L (137-145); Transferrin 140 mg/dL (206-381); Triglycerides 145 mg/dL (<150)
[2022-04-28] MEDS: cefTRIAXone 2 GM in SODIUM CHLORIDE 0.9% IV 100 ML 200 ML IVPB (10:06)
[2022-04-28] MEDS: KCL 20 MEQ/SW 100 ML 100 ML 50 MEQ IVPB (10:09)
--- NOTE | 2022-04-28 10:09 | PM.PNGS ---
Progress Note: A&P Assessment and Plan (1) Parastomal hernia with obstruction, without gangrene: Code(s): K43.3 - Parastomal hernia with obstruction, without gangrene Status: Chronic Assessment and Plan: Remain soft nontender and reducible. (2) Small bowel obstruction: Code(s): K56.609 - Unspecified intestinal obstruction, unspecified as to partial versus complete obstruction Status: Acute Assessment and Plan: Continue NG tube NPO IV fluids as before. Patient now on TPN. Subjective Subjective Date/Time Seen: 04/28/22 10:09 Patient reports: no new complaints, pain is less, bowel movement and afebrile Interval history: Frustrated she has not been able to transfer as yet. Review of Systems Review of Systems: All systems reviewed & are unremarkable except as noted in HPI and below (HPI and those items noted below) Constitutional: Constitutional: Denies chills and Denies fever(s) Cardiovascular: Cardiovascular: Denies chest pain, Denies diaphoresis, Denies dyspnea and Denies paroxysmal nocturnal dyspnea Respiratory: Respiratory: Denies chest congestion, Denies cough and Denies dyspnea Integumentary/Breasts: Skin/Breast: Denies lesions and Denies rash Exam Const: General: comfortable, alert, awake and thin Nutritional Appearance: thin GI: Inspection: distended, scar and visible herniation GI Palp: Yes abdominal tenderness (Mild), Yes Soft to palpation, No Guarding due to palpation present (GI), Yes Hernia present (Epigastric and peristomal hernias soft and nontender, reducible) and No Rebound tenderness present Auscultation: Hypoactive bowel sounds present Objective Data Vital Signs Vital Signs: Vital Signs - 24 hr 04/27/22 12:15 04/27/22 12:00 04/27/22 12:00 Temperature 36.5 C Pulse Rate 141 H 124 H Respiratory Rate Blood Pressure 144/100 H Pulse Oximetry Oxygen Delivery Room Air 04/27/22 14:00 04/27/22 16:00 04/27/22 16:31 Temperature 36.7 C Pulse Rate 104 H 81 Respiratory Rate 20 Blood Pressure 123/93 H Pulse Oximetry 100 Oxygen Delivery Room Air 04/27/22 16:00 04/27/22 18:00 04/27/22 19:52 Temperature 36.4 C Pulse Rate 94 81 85 Respiratory Rate 14 Blood Pressure 117/68 Pulse Oximetry 93 Oxygen Delivery 04/27/22 20:06 04/27/22 20:30 04/27/22 20:29 Temperature Pulse Rate 88 88 88 Respiratory Rate Blood Pressure 117/68 117/68 Pulse Oximetry Oxygen Delivery 04/27/22 20:00 04/27/22 20:00 04/27/22 22:00 Temperature Pulse Rate 85 89 85 Respiratory Rate 14 Blood Pressure Pulse Oximetry 93 Oxygen Delivery Room Air 04/27/22 23:42 04/28/22 00:00 04/28/22 00:00 Temperature 37.4 C Pulse Rate 95 75 95 Respiratory Rate 16 16 Blood Pressure 108/70 Pulse Oximetry 98 98 Oxygen Delivery Room Air 04/28/22 01:11 04/28/22 03:11 04/28/22 03:34 Temperature Pulse Rate 91 82 82 Respiratory Rate Blood Pressure 110/65 110/65 Pulse Oximetry Oxygen Delivery 04/28/22 01:45 04/28/22 04:00 04/28/22 04:00 Temperature Pulse Rate 67 88 87 Respiratory Rate 16 Blood Pressure Pulse Oximetry 98 Oxygen Delivery Room Air 04/28/22 04:00 04/28/22 05:27 04/28/22 05:51 Temperature 36.7 C Pulse Rate 87 84 84 Respiratory Rate 16 Blood Pressure 110/65 Pulse Oximetry 98 Oxygen Delivery 04/28/22 08:00 Temperature 37.0 C Pulse Rate 96 Respiratory Rate 18 Blood Pressure 126/94 H Pulse Oximetry 100 Oxygen Delivery Intake/Output Intake/Output: Intake & Output 04/25/22 04/26/22 04/27/22 04/28/22 23:59 23:59 23:59 23:59 Intake Total 2477 363 1820 1350 Output Total 3032 990 9773 900 Balance 827 -387 470 450 Meds/Results Medications: Active Medications Generic Name Dose Route Start Last Admin Trade Name Freq PRN Reason Stop Dose Admin Dextrose 12.5 gm 04/26/22 09:02 Dextrose 50% 25 Gm/50 Ml Syringe IV PUSH P
[2022-04-28] MEDS: PANTOPRAZOLE SODIUM IV 40 MG VIAL IV PUSH ×2 (10:12→21:49)
--- NOTE | 2022-04-28 11:58 | PM.PNCARD ---
Progress Note: A&P Assessment and Plan (1) Atrial fibrillation with rapid ventricular response: Code(s): I48.91 - Unspecified atrial fibrillation Status: Acute Assessment and Plan: She has history of chronic atrial fibrillation. Previous decision is to not anticoagulate or use anti-platelet medications based on previous decisions made by her primary other sports coach or instructor. Will not change this plan for now. Reduce diltiazem to 10 milligrams/hour and increase metoprolol to: 10 mg IV push q.4 hours. Continue to try to wean off diltiazem. (2) Electrolyte imbalance: Code(s): E87.8 - Other disorders of electrolyte and fluid balance, not elsewhere classified Status: Acute Assessment and Plan: Hyponatremic, hypokalemic, hypomagnesemic. Given another dose of IV potassium today. (3) Thrombocytopenia: Code(s): D69.6 - Thrombocytopenia, unspecified Status: Acute Assessment and Plan: Platelet count was a 146 on admission, now 59K. Notified hospitalist. Heparin flushes have been held. (4) Nausea and vomiting: Code(s): R11.2 - Nausea with vomiting, unspecified Status: Acute Assessment and Plan: Secondary to obstruction. In the process of being transferred to [facility] (5) B-cell lymphoma: Code(s): C85.10 - Unspecified B-cell lymphoma, unspecified site Status: Acute Assessment and Plan: Treatment of arm (6) Acute dehydration: Code(s): E86.0 - Dehydration Status: Acute Assessment and Plan: Continue fluid (7) Urinary tract infection: Code(s): N39.0 - Urinary tract infection, site not specified Status: Acute Assessment and Plan: On antibiotics Subjective Date/time seen: 04/28/22 11:58 Interval history: Marleen Maynard is a 67-year-old female with a history of B-cell lymphoma s/p chemo and radiation currently in remission, history of ileostomy, atrial fibrillation not on anticoagulation, and recent admission at [facility] for nausea, vomiting, abdominal pain just discharged about 5 days ago who?was readmitted for small-bowel obstruction and whom we are following because of her AFib with RVR. 04/26/2022: Waiting bed at [facility]. She denies any chest pain or shortness breath. Heart rate is elevated today despite IV diltiazem. NG in place 04/27/2022: Afib with RVR starting around 0430 this morning with HR in the 160's- 180's.? She denies feeling any palpitations, chest pain, shortness of breath.? Only complaint is abdominal discomfort.? She is anxious to get a bed at [facility]. Added IV metoprolol to try to wean off the diltiazem, since she seems to respond better to it. Date of service 04/28/2022: Patient sitting up in her chair, sister at bedside. Heart rate is improved, running generally in the 80s with the addition of metoprolol 5 mg IV push q.4 hours to her Cardizem. No shortness of breath or chest pain. Some abdominal discomfort. Expresses frustration regarding her long wait for transfer to [facility]. Review of Systems Constitutional: Constitutional: Denies fever(s) Cardiovascular: Cardiovascular: Denies chest pain, Denies pedal edema, Denies lightheadedness and Denies dyspnea Respiratory: Respiratory: Denies chest congestion and Denies dyspnea Gastrointestinal: Gastrointestinal: Reports abdominal pain, Denies hematochezia and Denies diarrhea Comments: Some abdominal discomfort and burning, nothing, through ileostomy. Genitourinary: Genitourinary: Denies hematuria Musculoskeletal: Musculoskeletal: Reports no additional musculoskeletal complaints and Reports myalgias (Just can not get comfortable) Integumentary/Breasts: Skin/Breast: Reports system reviewed and no additional complaints, except as docu Neurologic: Reports system reviewed and no additional complaints, except as documented, Denies behavioral changes and Denies confusion Psychiatric: Psychiatric: Denies behavioral changes and De
[2022-04-28 12:07] LABS: Glucose Point of Care 115 mg/dl (65-105)
[2022-04-28] MEDS: AMINO ACIDS 5%/D15W/E-LYTES/CA 2,000 ML with MULTIVITAMINS-12 INJ VIAL 1 2.5 ML, MULTIV... 20 ML IV CONT (14:01)
[2022-04-28 14:13] LABS: Sodium 130 mmol/L (137-145)
[2022-04-28] MEDS: FAT EMULSIONS IV 20% 250 ML 20.8 ML IVPB (14:15)
[2022-04-28] MEDS: SODIUM CHLORIDE 0.9% IV 1,000 ML 75 ML IV CONT (14:17)
[2022-04-28] MEDS: METOPROLOL TARTRATE INJ 5 MG/5 ML VIAL 10 MG IV PUSH ×3 (14:26→21:50)
--- NOTE | 2022-04-28 15:35 | P.PNIM_ITS ---
Progress Note: A&P Assessment and Plan (1) Small bowel obstruction: Code(s): K56.609 - Unspecified intestinal obstruction, unspecified as to partial versus complete obstruction Status: Acute Assessment and Plan: Patient presented with persistent abdominal pain, nausea, and vomiting, and no output from ileostomy 24 hours prior to presentation * CT of the abdomen/pelvis showed severe distal small-bowel obstruction possibly secondary to midline adhesion in the upper pelvis * Abdominal x-ray today shows persistent obstruction * Given patient's surgical history and extensive care completed at [facility], spoke with transfer center and patient accepted for placement at [facility] under care of Dr. 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 Awaiting bed availability. * 04/28 called update to transfer center and spoke with consultant teacher oncologist. No bed availability. Pt is first on waiting list. * Continue with NG decompression and NPO diet * Appreciate general surgery consultation * Continue TPN * Supportive care. Analgesics and antiemetics available as needed (2) Atrial fibrillation with rapid ventricular response: Code(s): I48.91 - Unspecified atrial fibrillation Status: Acute Assessment and Plan: EKG on presentation demonstrated atrial fibrillation with rapid ventricular response with heart rate 163 * Likely related to acute dehydration, electrolyte imbalance, UTI * Continue diltiazem drip, decreasedt to 10 milligrams/hour per Cardiology. * Increase metoprolol tartrate to 10 mg IV q4h and plan to wean diltiazem * Echocardiogram reviewed * Digoxin discontinued per Cardiology * Metoprolol succinate on hold while NPO * Appreciate cardiology consultation (3) Bacteremia: Code(s): R78.81 - Bacteremia Status: Acute Assessment and Plan: Blood culture with growth of Klebsiella oxytoca in 1 of 2 bottles. Source of infection is UTI * Continue IV ceftriaxone 2 g daily based on susceptibility results * 2nd blood culture bottle with no growth to date * Repeat blood cultures pending * Appreciate ID PharmD recommendations (4) UTI (urinary tract infection): Code(s): N39.0 - Urinary tract infection, site not specified Status: Acute Assessment and Plan: UA abnormal on presentation with 1+ leuk esterase and >75 WBC and leukocytosis with WBC 19.9 * Continue with IV ceftriaxone as above * Urine culture with growth of >100k Klebsiella oxytoca, susceptibility report pending * Concerning for ascending UTI given bacteremia (5) Ureteral stent occlusion: Code(s): T83.192A - Other mechanical complication of indwelling ureteral stent, initial encounter Status: Acute Assessment and Plan: CT showed moderate right pelvocaliectasis in spite of right nephroureteral stent, which may represent chronic dilation or stent dysfunction. * Patient is established with [facility] urology. Reports she was due for stent exchange on 04/25, but missed the appointment due to hospitalization. * Renal function is appropriate as is urine output. * No evidence of hydronephrosis noted on CT. * Concern given UTI with bacteremia. Spoke with urology 04/27 and cystogram was completed * Cystogram revealed findings suggestive of obstructing encrustation * Ideally patient will be evaluated by [facility] Urology upon transfer for management of this. Called [facility] transfer center 04/27 to update on results. If transfer becomes delayed or if clinical condition worsens, will proceed with Urology consultation at this facility. Per Urology, no need for urgent intervention at this
--- NOTE | 2022-04-28 15:35 | PM.IMPN ---
Progress Note: A&P Assessment and Plan (1) Small bowel obstruction: Code(s): K56.609 - Unspecified intestinal obstruction, unspecified as to partial versus complete obstruction Status: Acute Assessment and Plan: Patient presented with persistent abdominal pain, nausea, and vomiting, and no output from ileostomy 24 hours prior to presentation CT of the abdomen/pelvis showed severe distal small-bowel obstruction possibly secondary to midline adhesion in the upper pelvis Abdominal x-ray today shows persistent obstruction Given patient's surgical history and extensive care completed at [facility], spoke with transfer center and patient accepted for placement at [facility] under care of Dr. 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 Awaiting bed availability. 04/28 called update to transfer center and spoke with continuing education dean oncologist. No bed availability. Pt is first on waiting list. Continue with NG decompression and NPO diet Appreciate general surgery consultation Continue TPN Supportive care. Analgesics and antiemetics available as needed (2) Atrial fibrillation with rapid ventricular response: Code(s): I48.91 - Unspecified atrial fibrillation Status: Acute Assessment and Plan: EKG on presentation demonstrated atrial fibrillation with rapid ventricular response with heart rate 163 Likely related to acute dehydration, electrolyte imbalance, UTI Continue diltiazem drip, decreasedt to 10 milligrams/hour per Cardiology. Increase metoprolol tartrate to 10 mg IV q4h and plan to wean diltiazem Echocardiogram reviewed Digoxin discontinued per Cardiology Metoprolol succinate on hold while NPO Appreciate cardiology consultation (3) Bacteremia: Code(s): R78.81 - Bacteremia Status: Acute Assessment and Plan: Blood culture with growth of Klebsiella oxytoca in 1 of 2 bottles. Source of infection is UTI Continue IV ceftriaxone 2 g daily based on susceptibility results 2nd blood culture bottle with no growth to date Repeat blood cultures pending Appreciate ID PharmD recommendations (4) UTI (urinary tract infection): Code(s): N39.0 - Urinary tract infection, site not specified Status: Acute Assessment and Plan: UA abnormal on presentation with 1+ leuk esterase and >75 WBC and leukocytosis with WBC 19.9 Continue with IV ceftriaxone as above Urine culture with growth of >100k Klebsiella oxytoca, susceptibility report pending Concerning for ascending UTI given bacteremia (5) Ureteral stent occlusion: Code(s): T83.192A - Other mechanical complication of indwelling ureteral stent, initial encounter Status: Acute Assessment and Plan: CT showed moderate right pelvocaliectasis in spite of right nephroureteral stent, which may represent chronic dilation or stent dysfunction. Patient is established with [facility] urology. Reports she was due for stent exchange on 04/25, but missed the appointment due to hospitalization. Renal function is appropriate as is urine output. No evidence of hydronephrosis noted on CT. Concern given UTI with bacteremia. Spoke with urology 04/27 and cystogram was completed Cystogram revealed findings suggestive of obstructing encrustation Ideally patient will be evaluated by [facility] Urology upon transfer for management of this. Called [facility] transfer center 04/27 to update on results. If transfer becomes delayed or if clinical condition worsens, will proceed with Urology consultation at this facility. Per Urology, no need for urgent intervention at this time as patient is responding well to antibiotic therapy and is not septic. (6) Electrolyte abnormality: Code(s): E87.8 - Other disorders of electrolyte and fluid balance, not elsewhere classified Status: Acute Assessment and Plan: Hypokalemia: Potassium 3.2 today. Administer 20 mEq IV KCl Hypomagnesemia: Mag 1.6 today. 2 g IV Mag sulfate Hyponatremia:
[2022-04-28 16:44] LABS: Glucose Point of Care 100 mg/dl (65-105)
[2022-04-28] MEDS: ONDANSETRON INJ 4 MG/2 ML VIAL IV PUSH (20:10)
--- NOTE | 2022-04-28 20:43 | PC.NURSE ---
1829---bed received from [facility]- report given Alejandro MARIE- ambulance called- waiting for ambulance to arrive
[2022-04-29] MEDS: CENTRAL LINE FLUSH 10 ML IV PUSH (00:17)
--- NOTE | 2022-04-29 00:19 | PC.NURSE ---
Called and let receiving SYDNEY Chacon know that pt is on her way and has received morphine at 2345 and port is heparinized.
--- NOTE | 2022-04-29 06:04 | P.TS_ITS ---
Transfer Discharge Sum: Prov Provider Date of admission: 04/25/22 12:13 Primary care physician: PHYSICIAN NOT ON STAFF Admitting clinician: Madison Perrin DO Consults: 04/24/22 Consult to Physician Routine Comment: Consulting Provider: Joseph Deal bingo caller/MD group to consult: Surgery Reason for consultation: Severe Bowel Obstruction Has provider been notified: Yes 04/24/22 15:36 Consult to Physician Routine Comment: Consulting Provider: Nila Kamara Reason for consultation: A. fib with RVR Has provider been notified: Yes 04/24/22 21:21 Wound/ET Consult Routine Reason for Consult:: Check ileostomy stoma Consider irrigation of stoma to rule out blockage. 04/27/22 08:47 Consult to Dietitian Routine Reason for Consult:: TPN DS: Admitting Diagnosis Discharge Date 04/29/22 Admitting Diagnosis Atrial fibrillation with rapid ventricular response DS: Discharge Diagnosis Discharge Diagnosis (1) Small bowel obstruction: Code(s): K56.609 - Unspecified intestinal obstruction, unspecified as to partial versus complete obstruction Status: Acute Assessment and Plan: Patient presented with persistent abdominal pain, nausea, and vomiting, and no output from ileostomy 24 hours prior to presentation * CT of the abdomen/pelvis showed severe distal small-bowel obstruction possibly secondary to midline adhesion in the upper pelvis * Follow-up abdominal x-rays showed persistent obstruction * Given patient's surgical history and extensive care completed at [facility], spoke with transfer center and patient accepted for placement at [facility] under care of Dr. 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 * 04/28 called update to transfer center and spoke with environmental engineering technician oncologist. No bed availability. * Continue with NG decompression and NPO diet * Appreciate general surgery consultation * Continue TPN * Supportive care. Analgesics and antiemetics available as needed * 04/[address] [facility] (2) Atrial fibrillation with rapid ventricular response: Code(s): I48.91 - Unspecified atrial fibrillation Status: Acute Assessment and Plan: EKG on presentation demonstrated atrial fibrillation with rapid ventricular response with heart rate 163 * Likely related to acute dehydration, electrolyte imbalance, UTI * Continue diltiazem drip, decreasedt to 10 milligrams/hour per Cardiology. * Increase metoprolol tartrate to 10 mg IV q4h and plan to wean diltiazem * Echocardiogram reviewed * Digoxin discontinued per Cardiology * Metoprolol succinate on hold while NPO * Appreciate cardiology consultation (3) Bacteremia: Code(s): R78.81 - Bacteremia Status: Acute Assessment and Plan: Blood culture with growth of Klebsiella oxytoca in 1 of 2 bottles. Source of infection is UTI * Continue IV ceftriaxone 2 g daily based on susceptibility results * 2nd blood culture bottle with no growth to date * Repeat blood cultures pending * Appreciate ID PharmD recommendations (4) UTI (urinary tract infection): Code(s): N39.0 - Urinary tract infection, site not specified Status: Acute Assessment and Plan: UA abnormal on presentation with 1+ leuk esterase and >75 WBC and leukocytosis with WBC 19.9 * Continue with IV ceftriaxone as above * Urine culture with growth of >100k Klebsiella oxytoca, susceptibility report pending
--- NOTE | 2022-04-29 06:04 | PM.TDS ---
Transfer Discharge Sum: Prov Provider Date of admission: 04/25/22 12:13 Primary care physician: PHYSICIAN NOT ON STAFF Admitting clinician: Madison Perrin DO Consults: 04/24/22 Consult to Physician Routine Comment: Consulting Provider: Joseph Deal automotive service director/MD group to consult: Surgery Reason for consultation: Severe Bowel Obstruction Has provider been notified: Yes 04/24/22 15:36 Consult to Physician Routine Comment: Consulting Provider: Nila Kamara Reason for consultation: A. fib with RVR Has provider been notified: Yes 04/24/22 21:21 Wound/ET Consult Routine Reason for Consult:: Check ileostomy stoma Consider irrigation of stoma to rule out blockage. 04/27/22 08:47 Consult to Dietitian Routine Reason for Consult:: TPN DS: Admitting Diagnosis Discharge Date 04/29/22 Admitting Diagnosis Atrial fibrillation with rapid ventricular response DS: Discharge Diagnosis Discharge Diagnosis (1) Small bowel obstruction: Code(s): K56.609 - Unspecified intestinal obstruction, unspecified as to partial versus complete obstruction Status: Acute Assessment and Plan: Patient presented with persistent abdominal pain, nausea, and vomiting, and no output from ileostomy 24 hours prior to presentation CT of the abdomen/pelvis showed severe distal small-bowel obstruction possibly secondary to midline adhesion in the upper pelvis Follow-up abdominal x-rays showed persistent obstruction Given patient's surgical history and extensive care completed at [facility], spoke with transfer center and patient accepted for placement at [facility] under care of Dr. 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 04/28 called update to transfer center and spoke with online marketing director oncologist. No bed availability. Continue with NG decompression and NPO diet Appreciate general surgery consultation Continue TPN Supportive care. Analgesics and antiemetics available as needed 04/29 patient transferred to [facility] (2) Atrial fibrillation with rapid ventricular response: Code(s): I48.91 - Unspecified atrial fibrillation Status: Acute Assessment and Plan: EKG on presentation demonstrated atrial fibrillation with rapid ventricular response with heart rate 163 Likely related to acute dehydration, electrolyte imbalance, UTI Continue diltiazem drip, decreasedt to 10 milligrams/hour per Cardiology. Increase metoprolol tartrate to 10 mg IV q4h and plan to wean diltiazem Echocardiogram reviewed Digoxin discontinued per Cardiology Metoprolol succinate on hold while NPO Appreciate cardiology consultation (3) Bacteremia: Code(s): R78.81 - Bacteremia Status: Acute Assessment and Plan: Blood culture with growth of Klebsiella oxytoca in 1 of 2 bottles. Source of infection is UTI Continue IV ceftriaxone 2 g daily based on susceptibility results 2nd blood culture bottle with no growth to date Repeat blood cultures pending Appreciate ID PharmD recommendations (4) UTI (urinary tract infection): Code(s): N39.0 - Urinary tract infection, site not specified Status: Acute Assessment and Plan: UA abnormal on presentation with 1+ leuk esterase and >75 WBC and leukocytosis with WBC 19.9 Continue with IV ceftriaxone as above Urine culture with growth of >100k Klebsiella oxytoca, susceptibility report pending Concerning for ascending UTI given bacteremia (5) Ureteral stent occlusion: Code(s): T83.192A - Other mechanical complication of indwelling ureteral stent, initial encounter Status: Acute Assessment and Plan: CT showed moderate right pelvocaliectasis in spite of right nephroureteral stent, which may represent chronic dilation or stent dysfunction. Patient is established with [facility] urology. Reports she was due for stent exchange on 04/25, but missed the appointment due to hospitalization. Renal
== END 2022-04-29 00:15 | disposition short-term general hospital (02) | DRG 389 ==
LOC: ANHED 14:53 → ANHIMU 16:48
PROVIDERS: Physician Assistant; Preventive Medicine Aerospace Medicine; Surgery; Admitting Provider Student in an Organized Health Care Education/Training Program; Emergency Provider Emergency Medicine; Visit Provider Chiropractor
DX: K56.50 Intestinal adhesions [bands], unspecified as to partial versus complete obstruction (principal); C85.10 Unspecified B-cell lymphoma, unspecified site; K43.3 Parastomal hernia with obstruction, without gangrene; R78.81 Bacteremia; I48.20 Chronic atrial fibrillation, unspecified; N39.0 Urinary tract infection, site not specified; E87.1 Hypo-osmolality and hyponatremia; E46 Unspecified protein-calorie malnutrition; Z68.1 Body mass index [BMI] 19.9 or less, adult; T83.192A Other mechanical complication of indwelling ureteral stent, initial encounter; E86.0 Dehydration; E87.6 Hypokalemia; E88.09 Other disorders of plasma-protein metabolism, not elsewhere classified; D69.6 Thrombocytopenia, unspecified; E03.9 Hypothyroidism, unspecified; R79.89 Other specified abnormal findings of blood chemistry; R11.2 Nausea with vomiting, unspecified; B96.89 Other specified bacterial agents as the cause of diseases classified elsewhere; Z20.822 Contact with and (suspected) exposure to COVID-19; Z96.0 Presence of urogenital implants; Z87.891 Personal history of nicotine dependence; Z93.2 Ileostomy status
CPT/HCPCS: 36415; 51600; 71045; 74019; 74176; 74430; 80048; 80053; 81001; 82948; 83605; 83690; 83735; 83880; 84100; 84295; 84466; 84478; 84484; 85025; 85027; 85055; 85610; 85730; 87040; 87077; 87086; 87186; 93005; 93306; 96366; 96375; 96376; 99285; A9270; C9113; C9803; G0378; J0696; J1170; J1642; J2270; J2405; J3475; J3480; J7030; J7040; J7042; Q9967; U0003; U0005